=== PATIENT | male | born 1965 | race Hispanic/Latino ===

== ENCOUNTER 2018-12-07 22:40 | Inpatient (IN) | payer OTHER ==
[2018-12-07] MEDS ORDERED: TYLENOL ONE (22:49)
[2018-12-07] MEDS ORDERED: PROVENTIL IH ONE (23:08)
[2018-12-07] MEDS ORDERED: SOLU-Medrol IV ONE (23:08)
[2018-12-07] MEDS ORDERED: ATROVENT IH ONE (23:08)
--- NOTE | 2018-12-07 23:14 | Emergency Department Report ---
HPI - General Chief Complaint: Dyspnea/Respdistress Time Seen by Provider: 12/07/18 23:00 - HPI HPI: Room 22 The patient is a 53-year-old male presented with a chief complaint of shortness of breath. Patient states she's felt short of breath for the past 2 days. Patient missed a cough productive of sputum and states he is not aware of the color. Patient admits to a subjective fever and rhinorrhea. Patient states he has a sore throat and headache as well Location: Lungs Duration: [See above] Quality: Short of breath Severity: Moderate Modifying factors: [see above] Context: [see above] Mode of transportation: [not driving] ED Past Medical Hx - Past Medical History Previous Medical History?: Yes Hx Hypertension: Yes Hx COPD: Yes (no home O2) - Surgical History Hx Appendectomy: Yes Additional Surgical History: Tonsilectomy - Family History Family history: no significant - Social History Smoking Status: Former Smoker (none 6 years) Substance Use Type: None (denies illicit drug use) ED Review of Systems ROS: Stated complaint: SHORTNESS OF BREATH Other details as noted in HPI Constitutional: fever (subjective) Eyes: denies: eye pain ENT: throat pain Respiratory: cough, shortness of breath, wheezing Cardiovascular: denies: chest pain Endocrine: no symptoms reported Gastrointestinal: denies: abdominal pain Genitourinary: denies: dysuria Musculoskeletal: denies: back pain Neurological: headache Physical Exam - Physical Exam Vital Signs: Vital Signs 12/07/18 12/07/18 22:49 22:50 Temperature 101.9 F H Pulse Rate 118 H 118 H Respiratory 21 26 H Rate Blood Pressure 162/78 166/83 O2 Sat by Pulse 99 98 Oximetry Physical Exam: GENERAL: The patient is well-developed well-nourished male sitting on stretcher appearing to be in mild discomfort. [] HEENT: Normocephalic. Atraumatic. Extraocular motions are intact. Patient has moist mucous membranes. Oropharynx clear NECK: Supple. Trachea midline CHEST/LUNGS: Diffuse wheezing and rhonchi. HEART/CARDIOVASCULAR: Regular. There is no tachycardia. There is no gallop rub or murmur. ABDOMEN: Abdomen is soft, nontender. Patient has normal bowel sounds. There is no abdominal distention. SKIN: There is no rash. There is no diaphoresis. NEURO: The patient is awake, alert, and oriented. The patient is cooperative. The patient has normal speech MUSCULOSKELETAL: There is no evidence of acute injury. ED Course Vital Signs 12/07/18 12/07/18 22:49 22:50 Temperature 101.9 F H Pulse Rate 118 H 118 H Respiratory 21 26 H Rate Blood Pressure 162/78 166/83 O2 Sat by Pulse 99 98 Oximetry - Reevaluation(s) Reevaluation #1: 12/08/18 00:02 Patient states he is feeling better than he did on presentation. Patient's ABG reveals normal PaO2 with supplemental O2 with FiO2 of 50%. Patient still has faint wheezing. Will admit to the hospital for further management ED Medical Decision Making - Lab Data Result diagrams: 12/07/18 22:59 12/07/18 22:59 - EKG Data -: EKG Interpreted by Me EKG shows normal: sinus rhythm Rate: tachycardia (120 bpm) - EKG Data When compared to previous EKG there are: previous EKG unavailable Interpretation: other (no ischemic changes seen) - Radiology Data Radiology results: image reviewed (chest x-ray) interpreted by me: Chest x-ray-no focal infiltrates, no pneumothorax - Differential Diagnosis COPD exacerbation, pneumonia, bronchitis, influenza Critical care attestation.: If time is entered above; I have spent that time in minutes in the direct care of this critically ill patient, excluding procedure time. ED Disposition Clinical Impression: COPD exacerbation, Shortness of breath Disposition: OP ADMIT IP TO THIS HOSP Is pt being admited?: Yes Does the pt Need Aspirin: Yes Condition: Fair Instructions: Chronic Obstructive Pulmonary Disease (ED) Time of Disposition: 00:02 (hospitalist paged (Dr Briscoe))
[2018-12-07 23:30] LABS: Basophils % (Auto) 0.3 % (0.0-1.8); Eosinophils % (Auto) 0.1 % (0.0-4.3); Hematocrit 43.8 % (35.5-45.6); Hemoglobin 14.9 gm/dl (11.8-15.2); Lymphocytes # (Auto) 1.5 K/mm3 (1.2-5.4); Lymphocytes % (Auto) 16.5 % (13.4-35.0); Mean Corpuscular HGB Conc 34 % (32-34); Mean Corpuscular Volume 89 fl (84-94); Monocytes # (Auto) 1.3 K/mm3 (0.0-0.8); Platelet Count 125 K/mm3 (140-440); Red Blood Count 4.95 M/mm3 (3.65-5.03); Red Cell Distribution Width 13.4 % (13.2-15.2)
[2018-12-07 23:49] LABS: BUN/Creatinine Ratio 17; Blood Urea Nitrogen 12 mg/dL (9-20); Calcium 8.5 mg/dL (8.4-10.2); Hemolysis Index 15
--- NOTE | 2018-12-08 00:54 | XRay Report ---
FINAL REPORT EXAM: XR CHEST 1V AP HISTORY: sob TECHNIQUE: AP portable view of the chest. PRIORS: None. FINDINGS: The cardiomediastinal silhouette appears normal. There is a small patchy opacity in the left lung bas e, consistent with subsegmental atelectasis or small infiltrate. The bones and soft tissues are unrem arkable. IMPRESSION: Left basilar subsegmental atelectasis versus infiltrate
[2018-12-08] MEDS ORDERED: D50W (25GM) Syringe IV PRN (01:36)
[2018-12-08] MEDS ORDERED: TYLENOL PO ONE (02:11)
[2018-12-08] MEDS: DUONEB *Not for PRN Use IH SCH ×4 (02:50→20:49)
[2018-12-08] MEDS ORDERED: TYLENOL PO PRN (05:07)
[2018-12-08] MEDS: SOLU-Medrol IV SCH ×3 (05:41→21:12)
[2018-12-08] MEDS: HumuLIN R SUB-Q SCH ×4 (06:42→21:13)
--- NOTE | 2018-12-08 06:45 | History and Physical Report ---
CHIEF COMPLAINT: Shortness of breath. HISTORY OF PRESENT ILLNESS: The patient is a 53-year-old male with known history of COPD, who said he has been having shortness of breath going on for 2 days. There is also a history of cough productive of white to yellow sputum and also the patient said that there is some runny nose and fever going on, but denied any history of chest pain. The patient admitted to having headache and sore throat and denied history of nausea or vomiting and presented for evaluation. PAST MEDICAL HISTORY: Pertinent for COPD and hypertension. PAST SURGICAL HISTORY: Pertinent for appendectomy and tonsillectomy. FAMILY HISTORY: Noncontributory. SOCIAL HISTORY: The patient is a former cigarette smoker, but does not smoke currently, does not use illicit drugs, and does not drink alcohol. MEDICATIONS: The patient's home medications are not known at this time. ALLERGIES: There are no known drug allergies. REVIEW OF SYSTEMS: CONSTITUTIONAL: There is no fever, no chills, no diaphoresis. HEENT: There is no headache, but there is sore throat. CARDIOVASCULAR SYSTEM: There is no chest pain or orthopnea. RESPIRATORY SYSTEM: Shortness of breath is present. Cough is present. Rhinorrhea or runny nose is present. Congestion is present. GASTROINTESTINAL SYSTEM: There is no nausea, no vomiting. No abdominal pain, diarrhea or constipation. NEUROLOGICAL SYSTEM: There is no numbness, no dizziness, no altered mental status. MUSCULOSKELETAL SYSTEM: There is no joint pain or swelling. DERMATOLOGICAL SYSTEM: There is no skin rash or itching. GENITOURINARY SYSTEM: There is no dysuria, hematuria, or flank pain. Rest of system review is normal. PHYSICAL EXAMINATION: GENERAL: At the time of exam, the patient was found to be alert, oriented x 3 and in mild distress due to shortness of breath. VITAL SIGNS: At the initial time of presentation show temperature of 101.9 degrees Fahrenheit, pulse of 118, respirations 21, blood pressure 162/78, O2 sat of 99% on room air. HEENT: Shows pupils to be equal, round, and reactive to light and accommodating. Extraocular muscles are intact. NECK: Supple with no JVD or carotid bruit. CARDIOVASCULAR SYSTEM: Shows normal first and second heart sounds with no gallops or murmurs. RESPIRATORY SYSTEM: Shows good air entry on both sides of the lung with expiratory wheezing. GASTROINTESTINAL SYSTEM: Shows abdomen to be full, soft, nontender with no organomegaly or rigidity. NEUROLOGIC: Neuro exam shows no focal deficit. MUSCULOSKELETAL SYSTEM: Shows no joint swelling or tenderness. DERMATOLOGICAL SYSTEM: Shows no skin rash. GENITOURINARY SYSTEM: Showing no costovertebral angle tenderness. PERTINENT LABORATORY AND IMAGING STUDIES: The patient had chest x-ray done that shows left basilar subsegmental atelectasis versus infiltrate. The patient's lab results shows CBC with normal white count, normal hemoglobin and normal hematocrit and CBC differential showing elevated monocyte count of 14%. The patient's ABG shows low pH of 7.34 with normal pCO2, normal pO2 and this was done on FiO2 of 52 with normal O2 sat. The patient's chemistry shows slightly low sodium of 134, high glucose level of 245. It is not certain whether the patient is diabetic. DIAGNOSES: 1. Chronic obstructive pulmonary disease exacerbation. 2. Hyperglycemia PLAN OF CARE: 1. The patient will be admitted to medical/surgical [facility]. 2. The patient will be on IV Solu-Medrol 60 mg q.8 hours. 3. The patient will be on IV Levaquin 750 mg daily. 4. The patient will be on DuoNeb q.6 hours. 5. The patient will be on Tylenol 650 mg by mouth every 6 hours as needed for fever and headache. 6. The patient will be on IV Solu-Medrol 60 mg q.8 hours. 7. The patient will be on IV Zofran 4 mg every 8 hours as needed for nausea and vomiting. 8. The patient will be on Accu-Chek a.c. and bedtime, followed by low-dose sliding scale using regular insulin coverage. 9. The patient's diet will be 2 g sodium consistent carbohydrate diet. 10. The patient will be on oxygen by nasal cannula which will be adjusted by respiratory therapist for management of respiratory distress. JOB# [id number] OCN/NTS
[2018-12-08] MEDS: LEVAQUIN 750MG/150ML 750 MG/150 ML BAG IV SCH (10:00)
[2018-12-08] MEDS ORDERED: AFLURIA QUAD 2018-2019 SYRINGE IM ONE (12:00)
--- NOTE | 2018-12-08 15:19 | Progress Note ---
Assessment and Plan Acute COPD exacerbation - Will provide scheduled nebulizer breathing treatment and as needed - Place on empiric steroid and antibiotic - will get sputum culture, chest x-ray was unremarkable - Provide supplemental oxygen to keep oxygen saturation above 92% - Consider to consult pulmonary if no improvement in next 24 hours - We'll place on sliding scale of insulin as patient will be on empiric steroid Acute hypercapnic respiratory failure - Due to COPD exacerbation and likely underlying sleep apnea, now improved - Management as above, sleep study outpatient Hypertension, continue hydralazine by mouth, and as needed IV medications to keep systolic less than 160 Morbid obesity, dietary recommendation when stable Hyperglycemia, we'll check A1c, could be also from steroid - We will continue home medications, monitor BP - Provide DVT prophylaxis with Lovenox. Brief history: 53-year-old morbidly obese white male with known history of COPD presented to the hospital with complaint of worsening shortness of breath for last 2 days. Physical exam: GENERAL: well-developed morbidly obese white male lying on bed appeared to be in no discomfort. HEENT: Normocephalic. Atraumatic. No conjunctival congestion or icterus. Patient has moist mucous membranes. NECK: Supple. Trachea midline. CHEST/LUNGS: Diminished breath sounds auscultated bilaterally, breathing nonlabored. No wheezes crackles or rhonchi. HEART/CARDIOVASCULAR: Regular in rate and rhythm. S1 and S2 positive. ABDOMEN: Abdomen is soft, nontender. Patient has normal bowel sounds. SKIN: There is no rash. Warm and dry. NEURO: No focal motor deficit. Follows command. MUSCULOSKELETAL: No joint effusion or tenderness. EXTRIMITY: No edema, no cyanosis or clubbing. PSYCH: Cooperative. Subjective Date of service: 12/08/18 Interval history: Patient seen and examined. Medical records and medication list reviewed. No acute event overnight noted by the RN. Patient denies any chest pain, continued to complain of difficulty breathing wi th minimal exertion. Patient is tolerating diet. Discussed plan of care at bedside with patient. Objective - Constitutional Vitals: Vital Signs - 12hr 12/08/18 12/08/18 12/08/18 03:30 03:45 04:01 Temperature Pulse Rate 115 H Pulse Rate [ Anterior Bilateral Throughout] Pulse Rate [ Apical] Pulse Rate [ From Monitor] Respiratory 18 Rate Respiratory Rate [Anterior Bilateral Throughout] Blood Pressure 150/79 154/135 156/62 O2 Sat by Pulse 97 96 97 Oximetry 12/08/18 12/08/18 12/08/18 04:15 04:31 04:45 Temperature Pulse Rate 130 H 117 H Pulse Rate [ Anterior Bilateral Throughout] Pulse Rate [ Apical] Pulse Rate [ From Monitor] Respiratory 18 Rate Respiratory Rate [Anterior Bilateral Throughout] Blood Pressure 156/62 156/62 156/62 O2 Sat by Pulse 98 95 94 Oximetry 12/08/18 12/08/18 12/08/18 04:51 05:13 06:27 Temperature 98.3 F Pulse Rate 112 H Pulse Rate [ Anterior Bilateral Throughout] Pulse Rate [ Apical] Pulse Rate [ From Monitor] Respiratory 18 Rate Respiratory Rate [Anterior Bilateral Throughout] Blood Pressure 156/62 149/82 O2 Sat by Pulse 95 96 98 Oximetry 12/08/18 12/08/18 12/08/18 07:33 09:22 10:00 Temperature Pulse Rate 112 H Pulse Rate [ 115 H Anterior Bilateral Throughout] Pulse Rate [ 108 H Apical] Pulse Rate [ 104 H From Monitor] Respiratory 20 Rate Respiratory 22 Rate [Anterior Bilateral Throughout] Blood Pressure 158/68 O2 Sat by Pulse 94 94 Oximetry - Labs CBC & Chem 7: 12/07/18 22:59 12/07/18 22:59 Labs: Abnormal lab results 12/07/18 12/07/18 12/07/18 Range/Units 22:59 22:59 23:33 Plt Count 125 L (140-440) K/mm3 Meagher % (Auto) 14.0 H (0.0-7.3) % Meagher # 1.3 H (0.0-0.8) K/mm3 POC ABG pH 7.344 L (7.35-7.45) Sodium 134 L (137-145) mmol/L Creatinine 0.7 L (0.8-1.5) mg/dL Glucose 245 H (75-100) mg/dL POC Glucose (70-105) 12/08/18 12/08/18 Range/Units 05:43 11:28 Plt Count (140-440) K/mm3 Meagher % (Auto) (0.0-7.3) % Meagher # (0.0-0.8) K/mm3 POC ABG pH (7.35-7.45) Sodium (137-145) mmol/L Creatinine (0.8-1.5) mg/dL Glucose (75-100) mg/dL POC Glucose 438 H 418 H (70-105)
[2018-12-08] MEDS: GLUCOPHAGE PO SCH (16:48)
[2018-12-08] MEDS: APRESOLINE PO SCH (23:52)
[2018-12-09] MEDS: DUONEB *Not for PRN Use IH SCH ×4 (02:38→20:51)
[2018-12-09] MEDS: SOLU-Medrol IV SCH (05:29)
[2018-12-09] MEDS: HumuLIN R SUB-Q SCH ×4 (09:30→22:41)
[2018-12-09] MEDS: APRESOLINE PO SCH ×3 (09:31→21:22)
[2018-12-09] MEDS: GLUCOPHAGE PO SCH ×2 (09:31→18:30)
[2018-12-09] MEDS: LEVAQUIN 750MG/150ML 750 MG/150 ML BAG IV SCH (12:09)
[2018-12-09] MEDS: ZOFRAN IV PRN (12:09)
--- NOTE | 2018-12-09 13:07 | Progress Note ---
Assessment and Plan Acute COPD exacerbation - Will provide scheduled nebulizer breathing treatment and as needed -We will taper steroid and continue IV antibiotic - chest x-ray was unremarkable - Provide supplemental oxygen to keep oxygen saturation above 92% - on sliding scale of insulin as patient on empiric steroid Acute hypercapnic respiratory failure - Due to COPD exacerbation and likely underlying sleep apnea, now improved - Management as above, sleep study outpatient Hypertension, uncontrolled - continue hydralazine, add Norvascand lisinopril by mouth, and as needed IV medications to keep systolic less than 160 Morbid obesity, dietary recommendation when stable Hyperglycemia, A1c 6.2, could be also from steroid Abdominal pain with N/V - will obtain abdominal XRY - We will continue home medications, monitor BP - Provide DVT prophylaxis with Lovenox. Brief history: 53-year-old morbidly obese white male with known history of COPD presented to the hospital with complaint of worsening shortness of breath for last 2 days. Physical exam: GENERAL: well-developed morbidly obese white male lying on bed appeared to be in no discomfort. HEENT: Normocephalic. Atraumatic. No conjunctival congestion or icterus. Patient has moist mucous membranes. NECK: Supple. Trachea midline. CHEST/LUNGS: Diminished breath sounds auscultated bilaterally, breathing nonlabored. No wheezes crackles or rhonchi. HEART/CARDIOVASCULAR: Regular in rate and rhythm. S1 and S2 positive. ABDOMEN: Abdomen is soft, obese, + tender on RLQ. Patient has normal bowel sounds. SKIN: There is no rash. Warm and dry. NEURO: No focal motor deficit. Follows command. MUSCULOSKELETAL: No joint effusion or tenderness. EXTRIMITY: No edema, no cyanosis or clubbing. PSYCH: Cooperative. Subjective Date of service: 12/09/18 Interval history: Patient seen and examined. Medical records and medication list reviewed. No acute event overnight noted by the RN. Patient denies any chest pain, continued to complain of difficulty breathing with exertion. But better now Patient had vomiting this am, c/o RLQ abdominal pain Discussed plan of care at bedside with patient. Objective - Constitutional Vitals: Vital Signs - 12hr 12/09/18 12/09/18 12/09/18 04:17 08:33 08:38 Temperature 97.7 F 97.4 F L Pulse Rate 116 H 113 H Pulse Rate [ 106 H Anterior Bilateral Throughout] Respiratory 20 20 Rate Respiratory 20 Rate [Anterior Bilateral Throughout] Blood Pressure 146/71 158/70 O2 Sat by Pulse 94 96 Oximetry 12/09/18 12/09/18 12/09/18 08:43 09:51 12:14 Temperature 97.6 F Pulse Rate 110 H Pulse Rate [ 108 H Anterior Bilateral Throughout] Respiratory 22 Rate Respiratory 20 Rate [Anterior Bilateral Throughout] Blood Pressure 171/84 O2 Sat by Pulse 96 92 Oximetry - Labs CBC & Chem 7: 12/07/18 22:59 12/07/18 22:59 Labs: Abnormal lab results 12/08/18 12/08/18 12/08/18 Range/Units 14:54 16:06 20:42 POC Glucose 420 H 359 H (70-105) Hemoglobin A1c 6.2 H (4-6) % 12/09/18 12/09/18 Range/Units 05:56 11:44 POC Glucose 309 H 372 H (70-105) Hemoglobin A1c (4-6) %
[2018-12-09] MEDS: NORVASC PO SCH (14:00)
[2018-12-09] MEDS: ZESTRIL PO SCH (14:00)
[2018-12-09] MEDS: MORPHINE IV PRN ×2 (14:58→19:25)
--- NOTE | 2018-12-09 16:41 | XRay Report ---
FINAL REPORT EXAM: XR ABDOMEN 1V AP HISTORY: obstruction TECHNIQUE: 2 views of the abdomen. PRIORS: None currently available. FINDINGS: [id number]-ptekkcfv gas is distended small bowel loops with a maximum diameter 3.4 cm. Large bowel loops are decompressed with [id number]-gt-[id number] stool. No pneumatosis. No pneumoperitoneum. No significant ai r-fluid levels. There are no suspicious calcifications overlying the renal shadows. Degenerative changes are present in the spine and hips. IMPRESSION: Nonspecific bowel gas pattern. Findings may represent enteritis, ileus, or low grade incomplete obstr uction. Follow-up imaging is recommended if clinically indicated.
[2018-12-10] MEDS: DUONEB *Not for PRN Use IH SCH ×3 (02:38→14:28)
[2018-12-10] MEDS: ZOFRAN IV PRN (05:20)
[2018-12-10] MEDS: MORPHINE IV PRN (05:20)
[2018-12-10] MEDS: APRESOLINE PO SCH ×2 (05:53→17:50)
[2018-12-10] MEDS ORDERED: SOLU-Medrol IV SCH (10:00)
[2018-12-10] MEDS: ZESTRIL PO SCH (10:18)
[2018-12-10] MEDS: GLUCOPHAGE PO SCH (10:18)
[2018-12-10] MEDS: NORVASC PO SCH (10:18)
[2018-12-10] MEDS: LEVAQUIN 750MG/150ML 750 MG/150 ML BAG IV SCH (10:19)
[2018-12-10] MEDS: HumuLIN R SUB-Q SCH ×3 (10:19→17:49)
--- NOTE | 2018-12-10 14:35 | Cat Scan Report ---
CT ABDOMEN PELVIS WITHOUT CONTRAST: HISTORY: Pain. COMPARISON: none. TECHNIQUE: Helical CT in 1.25mm intervals without IV contrast. Sagittal and coronal reconstructions. FINDINGS: Lung bases: There are patchy groundglass infiltrates at both lung bases concerning for an infectious process. Normal heart size. No pleural fluid. Liver: Mild fatty changes identified throughout the liver. Biliary system: A few tiny calcified gallstones are identified. No biliary dilatation or inflammation. Pancreas: Normal. Spleen: Normal. Kidneys/ureters/bladder: Normal. Adrenal glands: Normal. Aorta: Mild calcifications. No aneurysm. Intestines: No evidence for bowel obstruction or focal inflammation. Appendix: Not identified, correlate with surgical history. Pelvic viscera: Normal. Ascites: None. Adenopathy: None. Musculoskeletal: Intact. Mild lumbar spondylosis. IMPRESSION: Subtle patchy infiltrates are suspected at the lung bases. Correlate for pulmonary infection. Mild hepatic steatosis. Cholelithiasis. No acute inflammatory process is identified in the abdomen or pelvis.
--- NOTE | 2018-12-10 15:07 | Discharge Summary ---
Providers - Providers Date of Admission: 12/08/18 00:04 Date of discharge: 12/10/18 Attending physician: NASRIN ARTEAGA [facility] Reason for admission: copd Condition: Fair Pertinent studies: CXR: Left basilar subsegmental atelectasis versus infiltrate Abdomen/pelvis xry: Nonspecific bowel gas pattern. Findings may represent enteritis, ileus, or low grade incomplete obstruction. Follow-up imaging is recommended if clinically indicated. CT abdomen/pelvis; Subtle patchy infiltrates are suspected at the lung bases. Correlate for pulmonary infection. Mild hepatic steatosis. Cholelithiasis. No acute inflammatory process is identified in the abdomen or pelvis. Hospital course: Brief history: 53-year-old morbidly obese white male with known history of COPD presented to the hospital with complaint of worsening shortness of breath for last 2 days. He was admitted with COPD protocol, clinically improved then c/o abdominal pain, obtained CT abdomen showed no acute process, provided supportive care, patient medically stabilized then discharged home in stable condition. Discuss diagnosis and management: Acute COPD exacerbation - Managed with scheduled nebulizer breathing treatment and as needed, taper s teroid dose and IV antibiotic - chest x-ray showed Left basilar subsegmental atelectasis versus infiltrate - Provided supplemental oxygen to keep oxygen saturation above 92% - symptom improved and was stable on discharge Acute hypercapnic respiratory failure - Due to COPD exacerbation and likely underlying sleep apnea, now improved - Management as above, sleep study outpatient Hypertension, uncontrolled - Placed on hydralazine, Norvasc and lisinopril by mouth, and as needed IV medications to keep systolic less than 160 Morbid obesity, dietary recommendation provided Hyperglycemia, A1c 6.2, could be also from steroid Abdominal pain with N/V, resolved - abdominal xry showed enteritis, ileus, or low grade incomplete obstruction - Obtain CT abdomen w/o any acute intra-abdominal findings, symptom resolved, could be from mild colitis - Provided DVT prophylaxis with Lovenox. Physical exam: GENERAL: well-developed morbidly obese white male lying on bed appeared to be in no discomfort. HEENT: Normocephalic. Atraumatic. No conjunctival congestion or icterus. Patient has moist mucous membranes. NECK: Supple. Trachea midline. CHEST/LUNGS: Diminished breath sounds auscultated bilaterally, breathing nonlabored. No wheezes crackles or rhonchi. HEART/CARDIOVASCULAR: Regular in rate and rhythm. S1 and S2 positive. ABDOMEN: Abdomen is soft, obese, no tenderness. Patient has normal bowel sounds. SKIN: There is no rash. Warm and dry. NEURO: No focal motor deficit. Follows command. MUSCULOSKELETAL: No joint effusion or tenderness. EXTRIMITY: No edema, no cyanosis or clubbing. PSYCH: Cooperative. Disposition: DC-01 TO HOME OR SELFCARE Time spent for discharge: 34 minutes Core Measure Documentation - Palliative Care Palliative Care/ Comfort Measures: Not Applicable - Core Measures Any of the following diagnoses?: none Exam - Constitutional Vitals: Temp Pulse Resp BP Pulse Ox 97.9 F 111 H 20 116/68 95 12/10/18 12:46 12/10/18 12:46 12/10/18 12:46 12/10/18 12:46 12/10/18 12:46 Plan Activity: advance as tolerated Weight Bearing Status: Weight Bear as Tolerated Diet: low fat, low salt Follow up with: ROLDAN ESPARZAST. [facility] [Primary Care Provider] - 3-5 Days Prescriptions: ALBUTEROL Inhaler (OR & NICU) [Proair] 2 puff IH QID PRN 30 Days inhalation PRN Reason: Shortness Of Breath amLODIPine [Norvasc] 10 mg PO QDAY #30 tablet Budesoni/Formotero 160-4.5(Nf) [Symbicort 160-4.5 (Nf)] 1 puff IH BID 30 Days inha hydrALAZINE [Apresoline TAB] 50 mg PO Q8HR #90 tablet levoFLOXacin [Levaquin TAB] 500 mg PO QDAY #5 tablet Lisinopril [Zestril TAB] 20 mg PO QDAY #30 tablet predniSONE [Prednisone] 50 mg PO DAILY #5 tablet
[2018-12-10 17:47] VITALS: BP 119/71
== END 2018-12-10 18:24 | disposition home or self-care (01) | DRG 189 ==
LOC: ED 22:40 → 3A 12-08 00:04 → 4A 12-08 04:43
PROVIDERS: ADMIT Internal Medicine; ATTEND Internal Medicine
PROC: 4A033R1 Measurement of Arterial Saturation, Peripheral, Percutaneous Approach (ICD-10-PCS; principal; 2018-12-07)
DX: J96.02 Acute respiratory failure with hypercapnia (principal); J44.1 Chronic obstructive pulmonary disease with (acute) exacerbation; Z68.41 Body mass index [BMI] 40.0-44.9, adult; G47.30 Sleep apnea, unspecified; I10 Essential (primary) hypertension; E66.01 Morbid (severe) obesity due to excess calories; R73.9 Hyperglycemia, unspecified; K52.9 Noninfective gastroenteritis and colitis, unspecified; T38.0X5A Adverse effect of glucocorticoids and synthetic analogues, initial encounter; Z71.3 Dietary counseling and surveillance; Y92.89 Other specified places as the place of occurrence of the external cause; Z90.49 Acquired absence of other specified parts of digestive tract; Z87.891 Personal history of nicotine dependence
CPT/HCPCS: 36415; 71045; 74018; 74176; 80048; 82803; 82962; 83036; 85025; 93005; 93010; 94640; 94760; G0378; J1815; J1956; J2270; J2405; J2920; J2930

== ENCOUNTER 2022-05-28 15:20 | Observation (INO) | payer BC ==
[2022-05-28] MEDS ORDERED: ASPIRIN 325 MG TAB PO ONE (15:35)
[2022-05-28] MEDS ORDERED: dilTIAZem 25 MG/5 ML INJ IV ONE ×2 (16:01→16:44)
--- NOTE | 2022-05-28 16:03 | Emergency Department Report ---
ED General Adult HPI - General Chief complaint: Dyspnea/Respdistress Stated complaint: Chest tightness, and heart racing Time Seen by Provider: 05/28/22 16:02 Source: patient, family, RN notes reviewed, old records reviewed Mode of arrival: Wheelchair Limitations: Physical Limitation - History of Present Illness Initial comments: The patient was evaluated in the emergency department for symptoms described in the history of present illness. He/she was evaluated in the context of the global COVID-19 pandemic, which necessitated consideration that the patient might be at risk for infection with the virus that causes COVID-19. Institutional protocols and algorithms that pertain to the evaluation of patients at risk for COVID-19 are in a state of rapid change based on information released by regulatory bodies including the CDC and federal and sta organizations. These policies and algorithms were followed during the patient's care in the emergency department. Please note that these policies, procedures and recommendations changed on a rapid basis. Past medical history: Morbid obesity, body mass index of 45, A. fib, former tobacco user, former alcohol abuse, methamphetamine abuse, renal insufficiency. The patient is a 56-year-old gentleman who presents to the ER today with a complaint of chest tightness, and rapid heartbeat. The patient endorses intermittent compliance with medications. Patient recently admitted to this hospital for A. fib with RVR. He was found to have A. fib with RVR, renal insufficiency, and vasomotor nephropathy, and diabetes it was also suspected that the patient has obstructive sleep apnea, but he has not had a formal sleep study. Patient endorses intermittent compliance with his "heart medicine", but believes that he has been compliant with his Eliquis. -: Gradual, days(s) Location: chest Severity scale (0 -10): 5 Quality: other (Pressure and ache) Consistency: constant Improves with: none Worsens with: none - Related Data Previous Rx's Medication Instructions Recorded Last Taken Type Albuterol Mdi (or & Nicu Only) 2 puff IH QID PRN 30 Days 12/10/18 Unknown Rx [ProAir HFA Inhaler] inhalation Budesoni/Formotero 160-4.5(Nf) 1 puff IH BID 30 Days inha 12/10/18 Unknown Rx [Symbicort 160-4.5 (Nf)] amLODIPine 10 mg PO QDAY #30 tablet 12/10/18 Unknown Rx hydrALAZINE [Apresoline TAB] 50 mg PO Q8HR #90 tablet 12/10/18 Unknown Rx predniSONE [Prednisone] 50 mg PO DAILY #5 tablet 12/10/18 Unknown Rx Amiodarone [Cordarone 200 MG TAB] 200 mg PO BID #60 tablet 04/22/22 Unknown Rx Apixaban [Eliquis] 5 mg PO BID #30 tab 04/22/22 Unknown Rx Allergies Allergy/AdvReac Type Severity Reaction Status Date / Time No Known Allergies Allergy Verified 04/19/22 18:51 ED Review of Systems ROS: Stated complaint: CHEST PAIN/SOB/HEART AND KIDNEY FAILURE Other details as noted in HPI Constitutional: denies: fever Eyes: denies: eye discharge ENT: denies: epistaxis Respiratory: shortness of breath Cardiovascular: palpitations, other (Chest tightness) Gastrointestinal: denies: abdominal pain, nausea, vomiting, melena Genitourinary: denies: dysuria Musculoskeletal: myalgia Neurological: weakness Hematological/Lymphatic: denies: easy bleeding ED Past Medical Hx - Past Medical History Previous Medical History?: Yes Hx Hypertension: Yes Hx Congestive Heart Failure: Yes Hx Diabetes: Yes Hx COPD: Yes Additional medical history: Atrial fibrillation - Surgical History Past Surgical History?: Yes Hx Appendectomy: Yes Additional Surgical History: Tonsilectomy - Social History Smoking Status: Never Smoker - Medications Home Medications: Home Medications Medication Instructions Recorded Confirmed Last Taken Type Albuterol Mdi (or & Nicu Only) 2 puff IH QID PRN 30 Days 12/10/18 04/20/22 Unknown Rx [ProAir HFA Inhaler] inhalation Budesoni/Formotero 160-4.5(Nf) 1 puff IH BID 30 Days inha 12/10/18 04/20/22 Unknown Rx [Symbicort 160-4.5 (Nf)] amLODIPine 10 mg PO QDAY #30 tablet 12/10/18 04/20/22 Unknown Rx hydrALAZINE [Apresoline TAB] 50 mg PO Q8HR #90 tablet 12/10/18 04/20/22 Unknown Rx predniSONE [Prednisone] 50 mg PO DAILY #5 tablet 12/10/18 04/20/22 Unknown Rx Amiodarone [Cordarone 200 MG TAB] 200 mg PO BID #60 tablet 04/22/22 Unknown Rx Apixaban [Eliquis] 5 mg PO BID #30 tab 04/22/22 Unknown Rx ED Physical Exam - General Limitations: Physical Limitation General appearance: alert, in no apparent distress, obese - Head Head exam: Present: atraumatic, normocephalic - Eye Eye exam: Present: normal appearance, EOMI. Absent: nystagmus - ENT ENT exam: Present: normal exam, normal orophraynx, mucous membranes moist, normal external ear exam (Poor dentition) - Neck Neck exam: Present: normal inspection, full ROM. Absent: tenderness, meningismus - Respiratory Respiratory exam: Present: decreased breath sounds. Absent: respiratory distress, wheezes, rales, rhonchi, stridor - Cardiovascular Cardiovascular Exam: Present: tachycardia, irregular rhythm, normal heart sounds. Absent: systolic murmur, diastolic murmur, rubs, gallop - GI/Abdominal GI/Abdominal exam: Present: soft. Absent: distended, tenderness, guarding, rebound, rigid, pulsatile mass - Rectal Rectal exam: Present: deferred - Extremities Exam Extremities exam: Present: normal inspection, full ROM, pedal edema, other (2+ pulses noted in the bilateral upper and lower extremities. There is no palpable cord. negative Homans sign. Muscular compartments are soft. The pelvis is stable.). Absent: calf tenderness - Back Exam Back exam: Present: normal inspection. Absent: tenderness, CVA tenderness (R), CVA tenderness (L), paraspinal tenderness, vertebral tenderness - Neurological Exam Neurological exam: Present: alert, oriented X3, other (No facial droop. Tongue midline. Extraocular movements intact bilaterally. Facial sensation intact to light touch in V1, V2, V3 distribution bilaterally. 5 and a 5 strength in 4 extremities. Sensation intact to light touch in 4 extremities.). Absent: motor sensory deficit - Psychiatric Psychiatric exam: Present: normal affect, normal mood - Skin Skin exam: Present: warm, dry, intact, normal color. Absent: rash ED Course Vital Signs 05/28/22 05/28/22 05/28/22 15:31 16:21 16:31 Temperature 98 F Pulse Rate 78 135 H 135 H Respiratory 24 20 21 Rate Blood Pressure 100/70 Blood Pressure 117/83 [Right] O2 Sat by Pulse 97 98 99 Oximetry O2 Sat by Pulse Oximetry [ Digit-Finger] 0805/28/22 05/28/22 16:32 16:37 16:45 Temperature Pulse Rate 135 H 113 H Respiratory 30 H 25 H Rate Blood Pressure 100/70 100/70 Blood Pressure [Right] O2 Sat by Pulse 99 98 Oximetry O2 Sat by Pulse Oximetry [ Digit-Finger] 05/28/22 05/28/22 05/28/22 17:01 17:04 17:15 Temperature Pulse Rate 117 H 111 H Respiratory 24 19 Rate Blood Pressure 108/70 124/79 Blood Pressure [Right] O2 Sat by Pulse 99 100 Oximetry O2 Sat by Pulse 99 Oximetry [ Digit-Finger] 05/28/22 17:27 Temperature Pulse Rate 110 H Respiratory Rate Blood Pressure 116/89 Blood Pressure [Right] O2 Sat by Pulse Oximetry O2 Sat by Pulse Oximetry [ Digit-Finger] - Reevaluation(s) Reevaluation #1: 05/28/22 17:03 Differential diagnosis, including but not limited to: Noncompliance, electrolyte derangement, thyroid derangement, obstructive sleep apnea, A. fib with RVR Assessment and plan: 56-year-old gentleman presenting with A. fib and RVR. He is afebrile, tachycardic. He is in no acute distress. Suspect undiagnosed obstructive sleep apnea. He is pleasant, calm and cooperative. Place patient on electronics design engineer, head of bed elevation, aspiration precautions, trial dose of diltiazem. Patient received 1 5 mg of diltiazem x1, heart rate slowed down, but still tachycardic. Additional diltiazem will be ordered. Recent ejection fraction reviewed and appreciated. Laying comfortably on side at this time, and in no acute distress 05/28/22 17:49 Patient received diltiazem, 15 mg x 1, and a subsequent dose of 20 mg. Heart rate now high 80s to low 90s. Patient resting comfortably. He feels improved. Admit to medical service under the care of Dr. Jose David Garcia, for nonspecific chest pain, and A. fib with RVR requiring multiple doses of intravenous agents. Patient agreeable to admission. - Pulse Oximetry Interpretation Digit-Finger Initial Pulse Oximetry Readin O2 Sat by Pulse Oximetry: 99 Actions Taken: none ED Medical Decision Making - Lab Data Result diagrams: 05/28/22 16:27 05/28/22 16:27 Vital Signs 05/28/22 05/28/22 05/28/22 15:31 16:32 16:37 Temperature 98 F Pulse Rate 78 135 H Respiratory 24 30 H Rate Blood Pressure 100/70 Blood Pressure 117/83 [Right] O2 Sat by Pulse 97 99 Oximetry - EKG Data -: EKG Interpreted by Me Rate: tachycardia - EKG Data 05/28/22 17:01 The EKG is interpreted at 15: 40 A. fib, RVR, rate 140 bpm. Borderline leftward axis deviation, poor R wave progression, QTC 505 ms. Abnormal EKG. Not a STEMI. - Radiology Data Radiology results: pending, report reviewed, image reviewed CHEST 2 VIEWS INDICATION / CLINICAL INFORMATION: sob with chest pain. COMPARISON: 04/19/2022 FINDINGS: SUPPORT DEVICES: None. HEART / MEDIASTINUM: No significant abnormality. LUNGS / PLEURA: No significant pulmonary or pleural abnormality. No pneumothorax. ADDITIONAL FINDINGS: No significant additional findings. IMPRESSION: 1. No acute findings. Signer Name: David Kate DO Signed: 05/28/2022 3:04 PM Workstation Name: [id number] Critical Care Time: Yes Critical care time in (mins) excluding proc time.: 45 Critical care attestation.: If time is entered above; I have spent that time in minutes in the direct care of this critically ill patient, excluding procedure time. ED Disposition Clinical Impression: Atrial fibrillation with rapid ventricular response, Body mass index exceeds 40, Non-compliance, Nonspecific chest pain Disposition: ADMITTED INPATIENT Is pt being admited?: Yes Does the pt Need Aspirin: No Condition: Good Instructions: Nonspecific Chest Pain, Adult Heart Score - HEART Score History: Slightly suspicious EKG: Non-specific Age: 45-65 Risk factors: > 3 risk factors or hx of atherosclerotic disease Troponin: < normal limit HEART Score: 4 - EKG Read Time Time EKG Completed: 15:40 EKG Read Time: 15:40 - Critical Actions Critical Actions: 4-6 pts:12-16.6% risk of adverse cardiac event. Should be admitted
--- NOTE | 2022-05-28 16:08 | XRay Report ---
CHEST 2 VIEWS INDICATION / CLINICAL INFORMATION: sob with chest pain. COMPARISON: 04/19/2022 FINDINGS: SUPPORT DEVICES: None. HEART / MEDIASTINUM: No significant abnormality. LUNGS / PLEURA: No significant pulmonary or pleural abnormality. No pneumothorax. ADDITIONAL FINDINGS: No significant additional findings. IMPRESSION: 1. No acute findings. Signer Name: David Kate DO Signed: 05/28/2022 4:04 PM Workstation Name: [id number]
[2022-05-28 16:54] LABS: Basophils # (Auto) 0.1 K/mm3 (0.0-0.1); Basophils % (Auto) 0.6 % (0.0-1.8); Eosinophils # (Auto) 0.2 K/mm3 (0.0-0.4); Eosinophils % (Auto) 2.6 % (0.0-4.3); Hematocrit 39.3 % (35.5-45.6); Hemoglobin 13.4 gm/dl (11.8-15.2); Lymphocytes # (Auto) 1.8 K/mm3 (1.2-5.4); Lymphocytes % (Auto) 21.2 % (13.4-35.0); Mean Corpuscular HGB Conc 34 % (32-34); Mean Corpuscular Volume 89 fl (84-94); Monocytes % (Auto) 11.6 % (0.0-7.3); Platelet Count 149 K/mm3 (140-440); Red Blood Count 4.42 M/mm3 (3.65-5.03); Red Cell Distribution Width 14.8 % (13.2-15.2)
[2022-05-28 17:20] LABS: Alanine Aminotransferase 61 units/L (7-56); Albumin 3.7 g/dL (3.9-5); BUN/Creatinine Ratio 23; Blood Urea Nitrogen 23 mg/dL (9-20); Calcium 8.8 mg/dL (8.4-10.2); Hemolysis Index 58
[2022-05-28] MEDS ORDERED: NON-FORMULARY EACH (Apixaban 5 MG Tablet) PO STA (17:29)
[2022-05-28] MEDS ORDERED: ASPIRIN 81 MG TAB CHEW PO ONE (17:49)
[2022-05-28] MEDS ORDERED: ACETAMINOPHEN 325 MG TAB PO PRN (17:53)
[2022-05-28] MEDS ORDERED: ONDANSETRON 4 MG/2 ML INJ IV PRN (17:53)
[2022-05-28] MEDS ORDERED: NALOXONE 0.4 MG/1 ML INJ IV PRN (17:53)
[2022-05-28] MEDS ORDERED: amLODIPine 10 MG TAB PO SCH (18:00)
[2022-05-28] MEDS ORDERED: APIXABAN 5 MG TAB PO STA (18:16)
[2022-05-29] MEDS ORDERED: LORazepam 0.5 MG TAB PO PRN (00:21)
[2022-05-29] MEDS ORDERED: ALBUTEROL 8.5 GM MDI INHALATION IH PRN (01:08)
[2022-05-29] MEDS ORDERED: METOCLOPRAMIDE 10 MG/2 ML INJ IV PRN (01:13)
[2022-05-29] MEDS ORDERED: ONDANSETRON 4 MG/2 ML INJ IV PRN (01:13)
[2022-05-29] MEDS ORDERED: MORPHINE 2 MG/1 ML INJ IV PRN (01:13)
[2022-05-29] MEDS ORDERED: ACETAMINOPHEN 325 MG TAB PO PRN (01:13)
[2022-05-29] MEDS ORDERED: NON-FORMULARY EACH (Budesoni/Formotero 160-4.5(Nf) 10.2 GM Inha) IH SCH (01:15)
[2022-05-29] MEDS ORDERED: SODIUM CHLORIDE 0.9% 1000 ML 1,000 ML IV SCH (01:15)
[2022-05-29] MEDS: INSULIN LISPRO 100 UNIT/ML SUB-Q SCH ×5 (01:24→22:35)
[2022-05-29] MEDS ORDERED: ALBUTEROL 2.5 MG/3 ML NEBU IH PRN (01:29)
[2022-05-29] MEDS: hydrALAZINE 25 MG TAB PO SCH ×3 (01:45→18:12)
[2022-05-29] MEDS: AMIODARONE 200 MG TAB PO SCH ×3 (02:56→22:41)
--- NOTE | 2022-05-29 08:36 | History and Physical Report ---
History of Present Illness Date of examination: 05/28/22 Date of admission: 05/28/22 17:53 Chief complaint: Chest pain and palpitations since a.m. History of present illness: 56-year-old male with a history of COPD, hypertension, atrial fibrillation on Eliquis presents to the ER with chest tightness and palpitations. In the emergency room his heart rate was ranging from 120 to 150. Patient was recently discharged after being treated for BINU and atrial fibrillation with RVR. Patient is on amiodarone and Eliquis. No shortness of breath. Chest pain is intermittent. - Past Medical History --Hypertension: Yes --Congestive Heart Failure: Yes --Diabetes: Yes --COPD: Yes --Additional medical history: Atrial fibrillation - Surgical History --Appendectomy: Yes -- Tonsilectomy - Social History --Never Smoker --Family history --Htn - Medications Home Medications: Home Medications Medication Instructions Recorded Confirmed Last Taken Type Albuterol Mdi (or & Nicu Only) 2 puff IH QID PRN 30 Days 12/10/18 04/20/22 Unknown Rx [ProAir HFA Inhaler] inhalation Budesoni/Formotero 160-4.5(Nf) 1 puff IH BID 30 Days inha 12/10/18 04/20/22 Unknown Rx [Symbicort 160-4.5 (Nf)] amLODIPine 10 mg PO QDAY #30 tablet 12/10/18 04/20/22 Unknown Rx hydrALAZINE [Apresoline TAB] 50 mg PO Q8HR #90 tablet 12/10/18 04/20/22 Unknown Rx predniSONE [Prednisone] 50 mg PO DAILY #5 tablet 12/10/18 04/20/22 Unknown Rx Amiodarone [Cordarone 200 MG TAB] 200 mg PO BID #60 tablet 04/22/22 Unknown Rx Apixaban [Eliquis] 5 mg PO BID #30 tab 04/22/22 Unknown Rx Review of Systems ROS: Stated complaint: CHEST PAIN/SOB/HEART AND KIDNEY FAILURE Other details as noted in HPI Constitutional: denies: fever Eyes: denies: eye discharge ENT: denies: epistaxis Respiratory: shortness of breath Cardiovascular: palpitations, other (Chest tightness) Gastrointestinal: denies: abdominal pain, nausea, vomiting, melena Genitourinary: denies: dysuria Musculoskeletal: myalgia Neurological: weakness Hematological/Lymphatic: denies: easy bleeding Medications and Allergies Allergies Allergy/AdvReac Type Severity Reaction Status Date / Time No Known Allergies Allergy Verified 04/19/22 18:51 Home Medications Medication Instructions Recorded Confirmed Last Taken Type Albuterol Mdi (or & Nicu Only) 2 puff IH QID PRN 30 Days 12/10/18 05/29/22 Unknown Rx [ProAir HFA Inhaler] inhalation Budesoni/Formotero 160-4.5(Nf) 1 puff IH BID 30 Days inha 12/10/18 05/29/22 Unknown Rx [Symbicort 160-4.5 (Nf)] amLODIPine 10 mg PO QDAY #30 tablet 12/10/18 05/29/22 Unknown Rx hydrALAZINE [Apresoline TAB] 50 mg PO Q8HR #90 tablet 12/10/18 05/29/22 Unknown Rx Amiodarone [Cordarone 200 MG TAB] 200 mg PO BID #60 tablet 04/22/22 05/29/22 Unknown Rx Apixaban [Eliquis] 5 mg PO BID #30 tab 04/22/22 05/29/22 Unknown Rx Active Meds: Active Medications Acetaminophen (Acetaminophen 325 Mg Tab) 650 mg PO Q4H PRN PRN Reason: Pain MILD(1-3)/Fever >100.5/MILLER Albuterol (Albuterol 2.5 Mg/3 Ml Nebu) 2.5 mg IH Q4HRT PRN PRN Reason: Shortness Of Breath Amiodarone HCl (Amiodarone 200 Mg Tab) 200 mg PO BID [facility] Last Admin: 05/29/22 02:56 Dose: 200 mg Arformoterol Tartrate (Arformoterol 15 Mcg/2 Ml Nebu) 15 mcg IH Q12HRT [facility] Budesonide (Budesonide 0.5 Mg/2 Ml Nebu) 1 mg IH Q12HRT [facility] Famotidine (Famotidine 20 Mg Tab) 20 mg PO BID [facility] Hydralazine HCl (Hydralazine 25 Mg Tab) 50 mg PO Q8H [facility] Last Admin: 05/29/22 01:45 Dose: Not Given Sodium Chloride (Nacl 0.9% 1000 Ml) 1,000 mls @ 75 mls/hr IV DIRECT [facility] Insulin Human Lispro (Insulin Lispro 100 Unit/Ml) 0 unit SUB-Q ACHS ASHVIN; Protocol Last Admin: 05/29/22 08:01 Dose: Not Given Lorazepam (Lorazepam 0.5 Mg Tab) 0.5 mg PO ONCE PRN PRN Reason: anxiety Last Admin: 05/29/22 01:19 Dose: 0.5 mg Metoclopramide HCl (Metoclopramide 10 Mg/2 Ml Inj) 10 mg IV Q6H PRN PRN Reason: Nausea And Vomiting Morphine Sulfate (Morphine 2 Mg/1 Ml Inj) 2 mg IV Q4H PRN PRN Reason: Pain, Moderate (4-6) Last Admin: 05/29/22 02:55 Dose: 2 mg Naloxone HCl (Naloxone 0.4 Mg/1 Ml Inj) 0.1 mg IV Q2MIN PRN PRN Reason: Res Rate </= 8 or 02 SAT < 92% Ondansetron HCl (Ondansetron 4 Mg/2 Ml Inj) 4 mg IV Q8H PRN PRN Reason: Nausea And Vomiting Oxycodone/Acetaminophen (Oxycodone /Acetaminophen 5-325mg Tab) 1 tab PO Q6H PRN PRN Reason: Pain, Moderate (4-6) Prednisone (Prednisone 50 Mg Tab) 50 mg PO DAILY ASHVIN Sodium Chloride (Sodium Chloride 0.9% 10 Ml Flush Syringe) 10 ml IV BID A[facility] Sodium Chloride (Sodium Chloride 0.9% 10 Ml Flush Syringe) 10 ml IV PRN PRN PRN Reason: LINE FLUSH Exam - Constitutional Vitals: Temp Pulse Resp BP Pulse Ox 98.0 F 121 H 20 143/90 97 05/29/22 07:39 05/29/22 07:39 05/29/22 05:12 05/29/22 07:39 05/29/22 07:39 General appearance: Present: no acute distress, well-nourished - EENT Eyes: Present: PERRL ENT: hearing intact, clear oral mucosa - Neck Neck: Present: supple, normal ROM - Respiratory Respiratory effort: normal Respiratory: bilateral: CTA - Cardiovascular Heart rate: 130 Rhythm: irregularly irregular Heart Sounds: Present: S1 & S2. Absent: rub, click - Extremities Extremities: no ischemia, pulses intact, pulses symmetrical, No edema Peripheral Pulses: within normal limits - Abdominal General gastrointestinal: Present: soft, non-tender, non-distended, normal bowel sounds Male genitourinary: Present: normal - Rectal Rectal Exam: deferred - Integumentary Integumentary: Present: clear, warm, dry - Musculoskeletal Musculoskeletal: gait normal, strength equal bilaterally - Psychiatric Psychiatric: appropriate mood/affect, intact judgment & insight - Neurologic Neurologic: CNII-XII intact, moves all extremities - Allied Health Allied health notes reviewed: nursing, case management HEART Score - HEART Score EKG: Non-specific Age: 45-65 Risk factors: > 3 risk factors or hx of atherosclerotic disease Troponin: Troponin T < 0.010 ng/mL (0.00-0.029) 05/28/22 21:44 Troponin: < normal limit - Critical Actions Critical Actions: 4-6 pts:12-16.6% risk of adverse cardiac event. Should be admitted Results - Labs CBC & Chem 7: 05/28/22 16:27 05/28/22 16:27 Labs: Laboratory Last Values WBC 8.3 K/mm3 (4.5-11.0) 05/28/22 16:27 RBC 4.42 M/mm3 (3.65-5.03) 05/28/22 16:27 Hgb 13.4 gm/dl (11.8-15.2) 05/28/22 16:27 Hct 39.3 % (35.5-45.6) 05/28/22 16:27 MCV 89 fl (84-94) 05/28/22 16:27 MCH 30 pg (28-32) 05/28/22 16: MCHC 34 % (32-34) 05/28/22 16: RDW 14.8 % (13.2-15.2) 05/28/22 16:27 Plt Count 149 K/mm3 (140-440) 05/28/22 16:27 Lymph % (Auto) 21.2 % (13.4-35.0) 05/28/22 16:27 Dent % (Auto) 11.6 % (0.0-7.3) H 05/28/22 16:27 Eos % (Auto) 2.6 % (0.0-4.3) 05/28/22 16: Baso % (Auto) 0.6 % (0.0-1.8) 05/28/22 16:27 Lymph # (Auto) 1.8 K/mm3 (1.2-5.4) 05/28/22 16:27 Dent # (Auto) 1.0 K/mm3 (0.0-0.8) H 05/28/22 16:27 Eos # (Auto) 0.2 K/mm3 (0.0-0.4) 05/28/22 16:27 Baso # (Auto) 0.1 K/mm3 (0.0-0.1) 05/28/22 16:27 Seg Neutrophils % 64.0 % (40.0-70.0) 05/28/22 16:27 Seg Neutrophils # 5.3 K/mm3 (1.8-7.7) 05/28/22 16:27 Sodium 141 mmol/L (137-145) 05/28/22 16:27 Potassium 5.4 mmol/L (3.6-5.0) H 05/28/22 16:27 Chloride 106.1 mmol/L (98-107) 05/28/22 16:27 Carbon Dioxide 23 mmol/L (22-30) 05/28/22 16:27 Anion Gap 17 mmol/L 05/28/22 16:27 BUN 23 mg/dL (9-20) H 05/28/22 16:27 Creatinine 1.0 mg/dL (0.8-1.3) 05/28/22 16:27 Estimated GFR > 60 ml/min 05/28/22 16:27 BUN/Creatinine Ratio 23 % 05/28/22 16:27 Glucose 230 mg/dL (75-100) H 05/28/22 16:27 POC Glucose 113 mg/dL (70-105) H 05/29/22 07:38 Calcium 8.8 mg/dL (8.4-10.2) 05/28/22 16:27 Magnesium 1.80 mg/dL (1.7-2.3) 05/28/22 16:27 Total Bilirubin 0.80 mg/dL (0.1-1.2) 05/28/22 16:27 AST 38 units/L (5-40) 05/28/22 16:27 ALT 61 units/L (7-56) H 05/28/22 16:27 Alkaline Phosphatase 66 units/L (35-129) 05/28/22 16:27 Total Creatine Kinase 54 units/L (55-170) L 05/28/22 16:27 Troponin T < 0.010 ng/mL (0.00-0.029) 05/28/22 21:44 NT-Pro-B Natriuret Pep 3134 pg/mL (0-900) H 05/28/22 16:27 Total Protein 6.0 g/dL (6.3-8.2) L 05/28/22 16:27 Albumin 3.7 g/dL (3.9-5) L 05/28/22 16:27 Albumin/Globulin Ratio 1.6 % 05/28/22 16:27 TSH 1.990 mlU/mL (0.270-4.200) 05/28/22 16:27 - Imaging and Cardiology EKG: report reviewed (Atrial fibrillation with RVR) Chest x-ray: report reviewed Imaging and Cardiology: Chest x-ray No acute findings Harmon/IV: Voiding Method Toilet Assessment and Plan Advance Directives: Yes (Full code) VTE prophylaxis?: Chemical Plan of care discussed with patient/family: Yes - Patient Problems (1) Atrial fibrillation with rapid ventricular response Current Visit: Yes Status: Acute Plan to address problem: Patient was given IV diltiazem in the emergency room Heart rate was down to 90s to 100s Continue amiodarone and Eliquis Cardiology consult requested (2) Elevated brain natriuretic peptide (BNP) level Current Visit: Yes Status: Acute Plan to address problem: Echocardiogram for ejection fraction Lasix if necessary Cardiology consult (3) HTN (hypertension) Current Visit: Yes Status: Chronic Qualifiers: Hypertension type: primary hypertension Qualified Code(s): I10 - Essential (primary) hypertension Plan to address problem: Continue antihypertensives and adjust medications (4) T2DM (type 2 diabetes mellitus) Current Visit: Yes Status: Chronic Qualifiers: 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: unspecified usp insulin use status Plan to address problem: New onset Patient started on metformin and Jardiance Hba1c (5) COPD (chronic obstructive pulmonary disease) Current Visit: Yes Status: Chronic Qualifiers: Emphysema type: unspecified Plan to address problem: Continue Symbicort and DuoNebs (6) Anticoagulation adequate Current Visit: Yes Status: Chronic Plan to address problem: On Eliquis (7) DVT prophylaxis Current Visit: Yes Status: Acute Plan to address problem: On Eliquis and GI prophylaxis (8) Advance care planning Current Visit: Yes Status: Acute Plan to address problem: This is education related care plan discussed, diagnosis discussed prognosis discussed. Patient acknowledged understanding of care plan +30 minutes. Patient is full code.
[2022-05-29] MEDS: BUDESONIDE 0.5 MG/2 ML NEBU IH SCH ×2 (09:20→19:57)
[2022-05-29] MEDS: ARFORMOTEROL 15 MCG/2 ML NEBU IH SCH ×2 (09:20→19:57)
[2022-05-29] MEDS: FAMOTIDINE 20 MG TAB PO SCH ×2 (09:43→22:41)
[2022-05-29] MEDS: LINAGLIPTIN 5 MG TAB PO SCH (09:44)
[2022-05-29] MEDS ORDERED: predniSONE 50 MG TAB PO SCH (10:00)
--- NOTE | 2022-05-29 11:07 | Consultation ---
History of Present Illness Consult date: 05/29/22 History of present illness: 56-year-old obese old male who with a history of COPD hypertension and atrial fibrillation presenting with symptoms of shortness of breath and chest tightness by the time of my evaluation patient is comfortable denies any history of shortness of breath or chest pain. Past History Past Medical History: atrial fib, diabetes, hypertension, hyperlipidemia Past Surgical History: denies: No surgical history Medications and Allergies Allergies Allergy/AdvReac Type Severity Reaction Status Date / Time No Known Allergies Allergy Verified 04/19/22 18:51 Home Medications Medication Instructions Recorded Confirmed Last Taken Type Albuterol Mdi (or & Nicu Only) 2 puff IH QID PRN 30 Days 12/10/18 05/29/22 Unknown Rx [ProAir HFA Inhaler] inhalation Budesoni/Formotero 160-4.5(Nf) 1 puff IH BID 30 Days inha 12/10/18 05/29/22 Unknown Rx [Symbicort 160-4.5 (Nf)] amLODIPine 10 mg PO QDAY #30 tablet 12/10/18 05/29/22 Unknown Rx hydrALAZINE [Apresoline TAB] 50 mg PO Q8HR #90 tablet 12/10/18 05/29/22 Unknown Rx Amiodarone [Cordarone 200 MG TAB] 200 mg PO BID #60 tablet 04/22/22 05/29/22 Unknown Rx Apixaban [Eliquis] 5 mg PO BID #30 tab 04/22/22 05/29/22 Unknown Rx Active Meds: Active Medications Acetaminophen (Acetaminophen 325 Mg Tab) 650 mg PO Q4H PRN PRN Reason: Pain MILD(1-3)/Fever >100.5/MILLER Albuterol (Albuterol 2.5 Mg/3 Ml Nebu) 2.5 mg IH Q4HRT PRN PRN Reason: Shortness Of Breath Amiodarone HCl (Amiodarone 200 Mg Tab) 200 mg PO BID [facility] Last Admin: 05/29/22 09:43 Dose: 200 mg Arformoterol Tartrate (Arformoterol 15 Mcg/2 Ml Nebu) 15 mcg IH Q12HRT [facility] Last Admin: 05/29/22 09:20 Dose: 15 mcg Budesonide (Budesonide 0.5 Mg/2 Ml Nebu) 1 mg IH Q12HRT [facility] Last Admin: 05/29/22 09:20 Dose: 1 mg Famotidine (Famotidine 20 Mg Tab) 20 mg PO BID [facility] Last Admin: 05/29/22 09:43 Dose: 20 mg Hydralazine HCl (Hydralazine 25 Mg Tab) 50 mg PO Q8H [facility] Last Admin: 05/29/22 09:44 Dose: 50 mg Sodium Chloride (Nacl 0.9% 1000 Ml) 1,000 mls @ 75 mls/hr IV DIRECT [facility] Insulin Human Lispro (Insulin Lispro 100 Unit/Ml) 0 unit SUB-Q ACHS [facility]; Protocol Last Admin: 05/29/22 08:01 Dose: Not Given Linagliptin (Linagliptin 5 Mg Tab) 5 mg PO QDDIAB [facility] Last Admin: 05/29/22 09:44 Dose: 5 mg Lorazepam (Lorazepam 0.5 Mg Tab) 0.5 mg PO ONCE PRN PRN Reason: anxiety Last Admin: 05/29/22 01:19 Dose: 0.5 mg Metformin HCl (Metformin 500 Mg Tab) 500 mg PO BIDDIAB [facility] Metoclopramide HCl (Metoclopramide 10 Mg/2 Ml Inj) 10 mg IV Q6H PRN PRN Reason: Nausea And Vomiting Morphine Sulfate (Morphine 2 Mg/1 Ml Inj) 2 mg IV Q4H PRN PRN Reason: Pain, Moderate (4-6) Last Admin: 05/29/22 02:55 Dose: 2 mg Naloxone HCl (Naloxone 0.4 Mg/1 Ml Inj) 0.1 mg IV Q2MIN PRN PRN Reason: Res Rate </= 8 or 02 SAT < 92% Ondansetron HCl (Ondansetron 4 Mg/2 Ml Inj) 4 mg IV Q8H PRN PRN Reason: Nausea And Vomiting Oxycodone/Acetaminophen (Oxycodone /Acetaminophen 5-325mg Tab) 1 tab PO Q6H PRN PRN Reason: Pain, Moderate (4-6) Prednisone (Prednisone 50 Mg Tab) 50 mg PO DAILY [facility] Last Admin: 05/29/22 09:44 Dose: 50 mg Sodium Chloride (Sodium Chloride 0.9% 10 Ml Flush Syringe) 10 ml IV BID [facility] Last Admin: 05/29/22 09:47 Dose: Not Given Sodium Chloride (Sodium Chloride 0.9% 10 Ml Flush Syringe) 10 ml IV PRN PRN PRN Reason: LINE FLUSH Review of Systems Constitutional: weight gain, weakness, no fever, no chills, no anorexia Ears, nose, mouth and throat: no ear pain, no ear discharge, no tinnitis, no nose pain, no nasal discharge Cardiovascular: orthopnea, palpitations, no edema, no syncope, no lighthea dedness, no shortness of breath Respiratory: no excessive sputum, no hemoptysis, no shortness of breath, no dyspnea on exertion Gastrointestinal: no nausea, no vomiting, no diarrhea Genitourinary Male: no dysuria, no hematuria, no flank pain Rectal: no pain, no incontinence Musculoskeletal: no neck pain, no arm numbness/tingling, no low back pain, no shooting leg pain, no leg numbness/tingling Integumentary: no rash, no pruritis Neurological: no weakness, no parathesias, no numbness, no tingling Endocrine: no cold intolerance, no heat intolerance, no polyphagia, no polydipsia, no polyuria, no nocturia Hematologic/Lymphatic: no easy bruising, no easy bleeding Allergic/Immunologic: no urticaria, no allergic rhinitis, no wheezing Physical Examination Vital Signs Temp Pulse Resp BP Pulse Ox 98 F 78 24 117/83 97 05/28/22 15:31 05/28/22 15:31 05/28/22 15:31 05/28/22 15:31 05/28/22 15:31 General appearance: no acute distress, obese HEENT: Positive: PERRL, Normocephaly, Mucus Membranes Moist Neck: Positive: neck supple, trachea midline. Negative: JVD/HJR Cardiac: Positive: S1/S2, PMI, Laterally Displaced. Negative: irregularly irregular, S3, S4 Lungs: Positive: clear to auscultation, No Wheeze, Rales, Rhonchi Abdomen: Positive: Unremarkable. Negative: Active Bowel Sounds Extremities: Absent: edema Results 05/28/22 16:27 05/28/22 16:27 Cardiac Enzymes 05/28/22 Range/Units 16:27 AST 38 (5-40) units/L CBC 05/28/22 Range/Units 16:27 WBC 8.3 (4.5-11.0) K/mm3 RBC 4.42 (3.65-5.03) M/mm3 Hgb 13.4 (11.8-15.2) gm/dl Hct 39.3 (35.5-45.6) % Plt Count 149 (140-440) K/mm3 Lymph # (Auto) 1.8 (1.2-5.4) K/mm3 [place] # (Auto) 1.0 H (0.0-0.8) K/mm3 Eos # (Auto) 0.2 (0.0-0.4) K/mm3 Baso # (Auto) 0.1 (0.0-0.1) K/mm3 Comprehensive Metabolic Panel 05/28/22 Range/Units 16:27 Sodium 141 (137-145) mmol/L Potassium 5.4 H (3.6-5.0) mmol/L Chloride 106.1 (98-107) mmol/L Carbon Dioxide 23 (22-30) mmol/L BUN 23 H (9-20) mg/dL Creatinine 1.0 (0.8-1.3) mg/dL Glucose 230 H (75-100) mg/dL Calcium 8.8 (8.4-10.2) mg/dL AST 38 (5-40) units/L ALT 61 H (7-56) units/L Alkaline Phosphatase 66 (35-129) units/L Total Protein 6.0 L (6.3-8.2) g/dL Albumin 3.7 L (3.9-5) g/dL - EKG Interpretation EKG shows: atrial fibrillation EKG interpretations - Telemetry EKG Rhythm: Atrial Fibrillation Assessment and Plan 1. Atrial fibrillation with rapid ventricular response 2. Type 2 diabetes mellitus 3. Obesity unspecified 4. Essential hypertension 5. Hyperlipidemia Previous echocardiogram done had showed normal left ventricular size normal right ventricular size with normal wall thickness normal global and regional function with a normal ejection fraction of the left ventricle. Chest x-ray shows no acute cardiopulmonary process. There is a history of noncompliance on medication and disposition Serum troponin levels are normal. As well as the TSH level Plan. Resume home cardiac medications of amiodarone and Eliquis. Education about the importance of compliance on medication.
[2022-05-29 11:54] LABS: Basophils % (Auto) 0.5 % (0.0-1.8); Eosinophils # (Auto) 0.3 K/mm3 (0.0-0.4); Eosinophils % (Auto) 2.6 % (0.0-4.3); Hematocrit 41.5 % (35.5-45.6); Hemoglobin 14.3 gm/dl (11.8-15.2); Lymphocytes # (Auto) 1.8 K/mm3 (1.2-5.4); Mean Corpuscular HGB Conc 34 % (32-34); Mean Corpuscular Volume 89 fl (84-94); Monocytes # (Auto) 0.9 K/mm3 (0.0-0.8); Monocytes % (Auto) 8.9 % (0.0-7.3); Platelet Count 152 K/mm3 (140-440); Red Blood Count 4.68 M/mm3 (3.65-5.03); Red Cell Distribution Width 14.6 % (13.2-15.2)
[2022-05-29 12:10] LABS: Alanine Aminotransferase 59 units/L (7-56); Albumin 3.7 g/dL (3.9-5); BUN/Creatinine Ratio 19; Blood Urea Nitrogen 19 mg/dL (9-20); Calcium 8.8 mg/dL (8.4-10.2); Hemolysis Index 5
[2022-05-29] MEDS: oxyCODONE /ACETAMINOPHEN 5-325MG TAB PO PRN ×2 (14:01→22:42)
[2022-05-29] MEDS ORDERED: HEPARIN 10,000 UNITS/10 ML VIAL IV PRN (14:37)
--- NOTE | 2022-05-29 14:44 | Electrocardiograph Report ---
[facility] Test Date: 2022-05-28 Test Time: 15:36:31 Pat Name: YESIKA BACON Department: Room: A474 1 Gender: M Onsite Case Manager: PERI : 1965 Requested By: DARCI MICHAUD Order Number: [id number] Reading MD: Nighat Sidhu Measurements Intervals [place] Rate: 145 P: VT: QRS: -16 QRSD: 86 T: 86 QT: 314 QTc: 489 Interpretive Statements Atrial fibrillation Anterior infarct, old Compared to ECG 04/19/2022 18:18:38 No significant changes Electronically Signed On 05-29-2022 14:43:47 EDT by Nighat Sidhu
--- NOTE | 2022-05-29 14:44 | Electrocardiograph Report ---
[facility] Test Date: 2022-05-28 Test Time: 15:37:29 Pat Name: YESIKA BACON Department: Room: A474 1 Gender: M Production Support Developer: PERI : 1965 Requested By: DARCI MICHAUD Order Number: [id number] Reading MD: Nighat Sidhu Measurements Intervals [place] Rate: 140 P: [place]: QRS: -21 QRSD: 93 T: 79 QT: 330 QTc: 505 Interpretive Statements Atrial fibrillation Anterior infarct, old Prolonged QT interval Compared to ECG 05/28/2022 15:36:31 Prolonged QT interval now present Myocardial infarct finding still present Electronically Signed On 05-29-2022 14:43:51 EDT by Nighat Sidhu
[2022-05-29] MEDS ORDERED: DIGOXIN 0.5 MG/2 ML INJ IV SCH (15:00)
[2022-05-29] MEDS: HEPARIN/ 0.45% NACL DRIP 25,000 UNIT/500 ML BAG IV SCH (15:56)
[2022-05-29 16:51] LABS: Hematocrit 43.4 % (35.5-45.6); Hemoglobin 14.4 gm/dl (11.8-15.2)
[2022-05-29 16:58] LABS: INR 0.97 (0.87-1.13); Partial Thromboplastin Time 32.3 Sec. (24.2-36.6)
[2022-05-29] MEDS: metFORMIN 500 MG TAB PO SCH (18:10)
--- NOTE | 2022-05-29 21:40 | Progress Note ---
Hospitalist Physical - Constitutional Vitals: Temp Pulse Resp BP Pulse Ox 98.4 F 116 H 16 139/91 99 05/29/22 11:26 05/29/22 19:58 05/29/22 19:58 05/29/22 11:26 05/29/22 11:26 General appearance: Present: no acute distress, obese HEART Score - HEART Score EKG: Non-specific Age: 45-65 Risk factors: > 3 risk factors or hx of atherosclerotic disease Troponin: Troponin T < 0.010 ng/mL (0.00-0.029) 05/28/22 21:44 Troponin: < normal limit - Critical Actions Critical Actions: 4-6 pts:12-16.6% risk of adverse cardiac event. Should be admitted Results - Labs CBC & Chem 7: 05/29/22 15:48 05/29/22 11:23 Labs: Laboratory Last Values WBC 10.6 K/mm3 (4.5-11.0) 05/29/22 05:00 RBC 4.68 M/mm3 (3.65-5.03) 05/29/22 05:00 Hgb 14.4 gm/dl (11.8-15.2) 05/29/22 15:48 Hct 43.4 % (35.5-45.6) 05/29/22 15:48 MCV 89 fl (84-94) 05/29/22 05:00 MCH 31 pg (28-32) 05/29/22 05:00 MCHC 34 % (32-34) 05/29/22 05:00 RDW 14.6 % (13.2-15.2) 05/29/22 05:00 Plt Count 151 K/mm3 (140-440) 05/29/22 15:48 Lymph % (Auto) 17.0 % (13.4-35.0) 05/29/22 05:00 [place] % (Auto) 8.9 % (0.0-7.3) H 05/29/22 05:00 Eos % (Auto) 2.6 % (0.0-4.3) 05/29/22 05:00 Baso % (Auto) 0.5 % (0.0-1.8) 05/29/22 05:00 Lymph # (Auto) 1.8 K/mm3 (1.2-5.4) 05/29/22 05:00 [place] # (Auto) 0.9 K/mm3 (0.0-0.8) H 05/29/22 05:00 Eos # (Auto) 0.3 K/mm3 (0.0-0.4) 05/29/22 05:00 Baso # (Auto) 0.0 K/mm3 (0.0-0.1) 05/29/22 05:00 Seg Neutrophils % 71.0 % (40.0-70.0) H 05/29/22 05:00 Seg Neutrophils # 7.5 K/mm3 (1.8-7.7) 05/29/22 05:00 PT 14.0 Sec. (12.2-14.9) 05/29/22 15:48 INR 0.97 (0.87-1.13) 05/29/22 15:48 APTT 32.3 Sec. (24.2-36.6) 05/29/22 15:48 Sodium 136 mmol/L (137-145) L 05/29/22 11:23 Potassium 4.9 mmol/L (3.6-5.0) 05/29/22 11:23 Chloride 98.7 mmol/L (98-107) 05/29/22 11:23 Carbon Dioxide 28 mmol/L (22-30) 05/29/22 11:23 Anion Gap 14 mmol/L 05/29/22 11:23 BUN 19 mg/dL (9-20) 05/29/22 11:23 Creatinine 1.0 mg/dL (0.8-1.3) 05/29/22 11:23 Estimated GFR > 60 ml/min 05/29/22 11:23 BUN/Creatinine Ratio 19 % 05/29/22 11:23 Glucose 270 mg/dL (75-100) H 05/29/22 11:23 POC Glucose 373 mg/dL (70-105) H 05/29/22 20:24 Calcium 8.8 mg/dL (8.4-10.2) 05/29/22 11:23 Magnesium 1.80 mg/dL (1.7-2.3) 05/28/22 16:27 Total Bilirubin 1.50 mg/dL (0.1-1.2) H 05/29/22 11:23 AST 28 units/L (5-40) 05/29/22 11:23 ALT 59 units/L (7-56) H 05/29/22 11:23 Alkaline Phosphatase 74 units/L (35-129) 05/29/22 11:23 Total Creatine Kinase 54 units/L (55-170) L 05/28/22 16:27 Troponin T < 0.010 ng/mL (0.00-0.029) 05/28/22 21:44 NT-Pro-B Natriuret Pep 3134 pg/mL (0-900) H 05/28/22 16:27 Total Protein 6.1 g/dL (6.3-8.2) L 05/29/22 11:23 Albumin 3.7 g/dL (3.9-5) L 05/29/22 11:23 Albumin/Globulin Ratio 1.5 % 05/29/22 11:23 TSH 1.990 mlU/mL (0.270-4.200) 05/28/22 16:27 [place]/IV: Voiding Method Toilet Active Medications - Current Medications Current Medications: Generic Name Dose Route Start Last Admin Trade Name Freq PRN Reason Stop Dose Admin Acetaminophen 650 mg 05/29/22 01:13 Acetaminophen 325 Mg Tab PO Q4H PRN Pain MILD(1-3)/Fever >100.5/MILLER Albuterol 2.5 mg 05/29/22 01:29 Albuterol 2.5 Mg/3 Ml Nebu IH Q4HRT PRN Shortness Of Breath Amiodarone HCl 200 mg 05/29/22 02:00 05/29/22 09:43 Amiodarone 200 Mg Tab PO 200 mg BID ASHVIN Administration Arformoterol Tartrate 15 mcg 05/29/22 08:00 05/29/22 19:57 Arformoterol 15 Mcg/2 Ml Nebu IH 15 mcg Q12HRT ASHVIN Administration Budesonide 1 mg 05/29/22 08:00 05/29/22 19:57 Budesonide 0.5 Mg/2 Ml Nebu IH 1 mg Q12HRT ASHVIN Administration Famotidine 20 mg 05/29/22 10:00 05/29/22 09:43 Famotidine 20 Mg Tab PO 20 mg BID ASHVIN Administration Heparin Sodium (Porcine) 5,800 unit 05/29/22 14:37 Heparin 10,000 Units/10 Ml Vial 40 unit/kg (5800 unit) IV Q6H PRN Anti-Xa Assay < 0.1 units/ml Hydralazine HCl 50 mg 05/29/22 02:00 05/29/22 18:12 Hydralazine 25 Mg Tab PO 50 mg Q8H ASHVIN Administration Sodium Chloride 1,000 mls @ 75 mls/hr 05/29/22 01:15 Nacl 0.9% 1000 Ml IV DIRECT ASHVIN Heparin Sodium/Sodium Chloride 25,000 unit in 500 mls @ 30 mls/hr 05/29/22 15:00 05/29/22 15:56 Heparin/ 0.45% Nacl-25,000 Unit/500 Ml IV 1,500 units/hr TITR ASHVIN 30 mls/hr Administration Protocol 1,500 UNITS/HR Insulin Human Lispro 0 unit 05/29/22 00:20 05/29/22 16:07 Insulin Lispro 100 Unit/Ml SUB-Q Not Given ACHS ASHVIN Protocol Linagliptin 5 mg 05/29/22 09:00 05/29/22 09:44 Linagliptin 5 Mg Tab PO 5 mg QDDIAB ASHVIN Administration Lorazepam 0.5 mg 05/29/22 00:21 05/29/22 01:19 Lorazepam 0.5 Mg Tab PO 0.5 mg ONCE PRN Administration anxiety Metformin HCl 500 mg 05/29/22 17:00 05/29/22 18:10 Metformin 500 Mg Tab PO 500 mg BIDDIAB ASHVIN Administration Metoclopramide HCl 10 mg 05/29/22 01:13 Metoclopramide 10 Mg/2 Ml Inj IV Q6H PRN Nausea And Vomiting Morphine Sulfate 2 mg 05/29/22 01:13 05/29/22 02:55 Morphine 2 Mg/1 Ml Inj IV 2 mg Q4H PRN Administration Pain, Moderate (4-6) Naloxone HCl 0.1 mg 05/28/22 17:53 Naloxone 0.4 Mg/1 Ml Inj IV Q2MIN PRN Res Rate </= 8 or 02 SAT < 92% Ondansetron HCl 4 mg 05/29/22 01:13 Ondansetron 4 Mg/2 Ml Inj IV Q8H PRN Nausea And Vomiting Oxycodone/Acetaminophen 1 tab 05/29/22 01:13 05/29/22 14:01 Oxycodone /Acetaminophen 5-325mg Tab PO 1 tab Q6H PRN Administration Pain, Moderate (4-6) Prednisone 50 mg 05/29/22 10:00 05/29/22 09:44 Prednisone 50 Mg Tab PO 50 mg DAILY ASHVIN Administration Sodium Chloride 10 ml 05/29/22 10:00 05/29/22 09:47 Sodium Chloride 0.9% 10 Ml Flush Syringe IV Not Given BID ASHVIN Sodium Chloride 10 ml 05/29/22 01:13 Sodium Chloride 0.9% 10 Ml Flush Syringe IV PRN PRN LINE FLUSH
[2022-05-30] MEDS: hydrALAZINE 25 MG TAB PO SCH ×2 (07:56→09:59)
[2022-05-30] MEDS ORDERED: HEPARIN 10,000 UNITS/10 ML VIAL IV PRN (08:00)
[2022-05-30] MEDS: INSULIN LISPRO 100 UNIT/ML SUB-Q SCH (08:45)
[2022-05-30] MEDS: ARFORMOTEROL 15 MCG/2 ML NEBU IH SCH (09:16)
[2022-05-30] MEDS: BUDESONIDE 0.5 MG/2 ML NEBU IH SCH (09:16)
[2022-05-30 09:30] LABS: BUN/Creatinine Ratio 22; Blood Urea Nitrogen 22 mg/dL (9-20); Calcium 8.8 mg/dL (8.4-10.2); Hemolysis Index 0
[2022-05-30] MEDS: HEPARIN/ 0.45% NACL DRIP 25,000 UNIT/500 ML BAG IV SCH (09:59)
[2022-05-30] MEDS: AMIODARONE 200 MG TAB PO SCH (10:00)
[2022-05-30] MEDS: metFORMIN 500 MG TAB PO SCH (10:00)
[2022-05-30] MEDS: FAMOTIDINE 20 MG TAB PO SCH (10:00)
[2022-05-30] MEDS: LINAGLIPTIN 5 MG TAB PO SCH (10:00)
[2022-05-30 11:14] VITALS: BP 127/67
--- NOTE | 2022-05-30 12:51 | Progress Note ---
Assessment and Plan . Atrial fibrillation with rapid ventricular response 2. Type 2 diabetes mellitus 3. Obesity unspecified 4. Essential hypertension 5. Hyperlipidemia Previous echocardiogram done had showed normal left ventricular size normal right ventricular size with normal wall thickness normal global and regional function with a normal ejection fraction of the left ventricle. Chest x-ray shows no acute cardiopulmonary process. There is a history of noncompliance on medication and disposition Serum troponin levels are normal. As well as the TSH level Plan. Resume home cardiac medications of amiodarone and Eliquis. Education about the importance of compliance on medication. Subjective Interval history: Patient doing well. Denies any chest pain shortness of breath orthopnea or palpitations. Objective Vital Signs Temp Pulse Pulse Resp Resp Resp BP 05/30/22 11:13 98.0 F 115 H 18 127/67 05/30/22 10:00 111 H 05/30/22 09:59 104 H 152/80 05/30/22 09:16 119 H 20 05/30/22 08:02 98.4 F 104 H 18 152/80 05/30/22 04:56 97.5 F L 101 H 18 123/69 05/30/22 00:49 98.6 F 18 125/70 05/29/22 22:23 97.4 F L 111 H 20 130/77 05/29/22 22:00 117 H 05/29/22 20:00 20 05/29/22 19:58 116 H 16 Pulse Ox 05/30/22 11:13 95 05/30/22 10:00 98 05/30/22 09:59 05/30/22 09:16 05/30/22 08:02 97 05/30/22 04:56 96 05/30/22 00:49 05/29/22 22:23 99 05/29/22 22:00 05/29/22 20:00 95 05/29/22 19:58 - Physical Examination General: Other (We will) HEENT: Positive: PERRL, Normocephaly, Mucus Membranes Moist Neck: Positive: neck supple, trachea midline. Negative: JVD/HJR Lungs: Positive: clear to auscultation, Decreased Breath Sounds, No Wheeze, Rales, Rhonchi Neuro: Positive: Grossly Intact Abdomen: Positive: Unremarkable. Negative: Active Bowel Sounds Skin: Negative: Rash Extremities: Absent: edema - Labs and Meds Coagulation 05/29/22 Range/Units 15:48 PT 14.0 (12.2-14.9) Sec. INR 0.97 (0.87-1.13) APTT 32.3 (24.2-36.6) Sec. CBC 05/29/22 Range/Units 15:48 Hgb 14.4 (11.8-15.2) gm/dl Hct 43.4 (35.5-45.6) % Plt Count 151 (140-440) K/mm3 Comprehensive Metabolic Panel 05/30/22 Range/Units Unknown Sodium 140 (137-145) mmol/L Potassium 4.6 (3.6-5.0) mmol/L Chloride 101.4 (98-107) mmol/L Carbon Dioxide 27 (22-30) mmol/L BUN 22 H (9-20) mg/dL Creatinine 1.0 (0.8-1.3) mg/dL Glucose 139 H (75-100) mg/dL Calcium 8.8 (8.4-10.2) mg/dL - Imaging and Cardiology EKG: report reviewed (Atrial fibrillation with RVR)
== END 2022-05-30 12:29 | disposition home or self-care (01) ==
LOC: ED 15:20 → INTOOBSV 17:53 → 4A 17:53
PROVIDERS: ADMIT Internal Medicine; ATTEND Internal Medicine
DX: I48.20 Chronic atrial fibrillation, unspecified (principal); I11.0 Hypertensive heart disease with heart failure; I50.9 Heart failure, unspecified; E11.9 Type 2 diabetes mellitus without complications; J44.9 Chronic obstructive pulmonary disease, unspecified; E66.9 Obesity, unspecified; E78.5 Hyperlipidemia, unspecified; Z79.01 Long term (current) use of anticoagulants; Z79.899 Other long term (current) drug therapy
CPT/HCPCS: 36415; 71046; 80048; 80053; 82550; 82962; 83036; 83735; 83880; 84443; 84484; 85014; 85018; 85025; 85049; 85520; 85610; 85730; 93005; 94640; 96365; 96366; 96372; 96375; 96376; 99291; C8929; G0378; J1160; J1644; J2270; J3490; J7512; 93306; Q9967; J1815

== ENCOUNTER 2022-06-26 17:04 | Observation (INO) | payer BC ==
--- NOTE | 2022-06-26 17:34 | Event Note ---
Date: 06/26/22 Medical screening examination note Verbal report received from emergency medical services. EMS documentation not available at time of chart dictation 56-year-old gentleman brought to the hospital by EMS with a complaint of not feeling well for 3 days. Past medical history includes A. fib, with recently preserved ejection fraction, noncompliance, morbid obesity, diabetes, hypertension and COPD. EMS reports A. fib with RVR, heart rate 114 to 120 bpm, blood pressure 95/65. Patient awake and alert, protecting airway, moving 4 extremities, mildly anxious, but otherwise does not appear to be in any acute distress. Obtain appropriate laboratory studies, EKG, place patient on cardiac cath technician, detailed history and physical to be performed by myself or oncoming ER provider.
--- NOTE | 2022-06-26 17:53 | XRay Report ---
CHEST 2 VIEWS INDICATION / CLINICAL INFORMATION: Dyspnea. COMPARISON: 05/28/2022 FINDINGS: SUPPORT DEVICES: None. HEART / MEDIASTINUM: No significant abnormality. LUNGS / PLEURA: No significant pulmonary or pleural abnormality. No pneumothorax. ADDITIONAL FINDINGS: No significant additional findings. IMPRESSION: 1. No acute findings. Signer Name: Kendall Martinez MD Signed: 06/26/2022 5:49 PM Workstation Name: [id number]
[2022-06-26 18:17] LABS: Basophils # (Auto) 0.1 K/mm3 (0.0-0.1); Eosinophils # (Auto) 0.1 K/mm3 (0.0-0.4); Eosinophils % (Auto) 1.5 % (0.0-4.3); Hematocrit 51.1 % (35.5-45.6); Hemoglobin 16.6 gm/dl (11.8-15.2); Lymphocytes # (Auto) 1.8 K/mm3 (1.2-5.4); Lymphocytes % (Auto) 18.9 % (13.4-35.0); Mean Corpuscular HGB Conc 33 % (32-34); Mean Corpuscular Volume 88 fl (84-94); Monocytes % (Auto) 11.2 % (0.0-7.3); Platelet Count 215 K/mm3 (140-440); Red Blood Count 5.83 M/mm3 (3.65-5.03); Red Cell Distribution Width 13.7 % (13.2-15.2)
[2022-06-26 18:27] LABS: INR 0.88 (0.87-1.13)
[2022-06-26 18:28] LABS: Partial Thromboplastin Time 28.2 Sec. (24.2-36.6)
[2022-06-26 18:42] LABS: Alanine Aminotransferase 38 units/L (7-56); Albumin 4.3 g/dL (3.9-5); BUN/Creatinine Ratio 18; Blood Urea Nitrogen 24 mg/dL (9-20); Calcium 9.6 mg/dL (8.4-10.2); Hemolysis Index 5
[2022-06-26] MEDS ORDERED: dilTIAZem 25 MG/5 ML INJ IV ONE ×3 (20:30→21:20)
[2022-06-26] MEDS ORDERED: NON-FORMULARY EACH (Apixaban 5 MG Tablet) PO STA (20:31)
[2022-06-26] MEDS ORDERED: APIXABAN 5 MG TAB PO STA (20:39)
[2022-06-26] MEDS ORDERED: diphenhydrAMINE 50 MG/ML VIAL IV ONE ×2 (21:15→21:20)
[2022-06-26] MEDS ORDERED: FAMOTIDINE 20 MG/2 ML INJ IV ONE (21:24)
[2022-06-26] MEDS ORDERED: methylPREDNISolone Sod Succinate 125 MG/2 ML INJ IV ONE (21:24)
[2022-06-26] MEDS ORDERED: METOPROLOL TARTRATE 5 MG/5 ML INJ IV ONE (21:36)
[2022-06-26] MEDS ORDERED: METOPROLOL TARTRATE 50 MG TAB PO ONE (21:36)
--- NOTE | 2022-06-26 21:42 | Emergency Department Report ---
ED General Adult HPI - General Chief complaint: Arrhythmia/Palpitations Stated complaint: My heart is beating fast PUI?: No Time Seen by Provider: 06/26/22 20:13 Source: patient, EMS (Verbal report received from emergency medical services. EMS documentation not available at time of chart dictation ), RN notes reviewed, old records reviewed Mode of arrival: Stretcher Limitations: No Limitations - History of Present Illness Initial comments: The patient was evaluated in the emergency department for symptoms described in the history of present illness. He/she was evaluated in the context of the global COVID-19 pandemic, which necessitated consideration that the patient might be at risk for infection with the virus that causes COVID-19. Institutional protocols and algorithms that pertain to the evaluation of patients at risk for COVID-19 are in a state of rapid change based on information released by regulatory bodies including the CDC and federal and state organizations. These policies and algorithms were followed during the patient's care in the emergency department. Please note that these policies, procedures and recommendations changed on a rapid basis. This is a 56-year-old gentleman, who is morbidly obese, with a history of A. fib, compliant with Eliquis, COPD, not on home oxygen. He presents to the department today with a complaint of chest tightness, and rapid heartbeat. He reports compliance with his medications. Currently denies headache, neck pain, abdominal pain, vomiting, diaphoresis, hematemesis, bright red blood per rectum, and urinary symptoms. He is mildly anxious. -: Sudden Location: chest Severity scale (0 -10): 0 Consistency: constant Improves with: none Worsens with: none - Related Data Previous Rx's Medication Instructions Recorded Last Taken Type Albuterol Mdi (or & Nicu Only) 2 puff IH QID PRN 30 Days 12/10/18 Unknown Rx [ProAir HFA Inhaler] inhalation Budesoni/Formotero 160-4.5(Nf) 1 puff IH BID 30 Days inha 12/10/18 Unknown Rx [Symbicort 160-4.5 (Nf)] amLODIPine 10 mg PO QDAY #30 tablet 12/10/18 Unknown Rx hydrALAZINE [Apresoline TAB] 50 mg PO Q8HR #90 tablet 12/10/18 Unknown Rx Amiodarone [Cordarone 200 MG TAB] 200 mg PO BID #60 tablet 04/22/22 Unknown Rx Apixaban [Eliquis] 5 mg PO BID #30 tab 04/22/22 Unknown Rx Allergies Allergy/AdvReac Type Severity Reaction Status Date / Time No Known Allergies Allergy Verified 06/09/22 07:09 ED Review of Systems ROS: Stated complaint: CHEST PAIN Other details as noted in HPI Constitutional: denies: fever Eyes: denies: eye discharge Respiratory: denies: wheezing Cardiovascular: chest pain, palpitations Gastrointestinal: denies: abdominal pain, hematemesis, melena, hematochezia Genitourinary: denies: dysuria Neurological: denies: headache Psychiatric: anxiety Hematological/Lymphatic: denies: easy bleeding ED Past Medical Hx - Past Medical History Hx Hypertension: Yes Hx Congestive Heart Failure: Yes Hx Diabetes: Yes Hx Asthma: No Hx COPD: Yes Additional medical history: Atrial fibrillation - Surgical History Hx Appendectomy: Yes Additional Surgical History: Tonsilectomy - Social History Smoking Status: Former Smoker - Medications Home Medications: Home Medications Medication Instructions Recorded Confirmed Last Taken Type Albuterol Mdi (or & Nicu Only) 2 puff IH QID PRN 30 Days 12/10/18 05/29/22 Unknown Rx [ProAir HFA Inhaler] inhalation Budesoni/Formotero 160-4.5(Nf) 1 puff IH BID 30 Days inha 12/10/18 05/29/22 Unknown Rx [Symbicort 160-4.5 (Nf)] amLODIPine 10 mg PO QDAY #30 tablet 12/10/18 05/29/22 Unknown Rx hydrALAZINE [Apresoline TAB] 50 mg PO Q8HR #90 tablet 12/10/18 05/29/22 Unknown Rx Amiodarone [Cordarone 200 MG TAB] 200 mg PO BID #60 tablet 04/22/22 05/29/22 Unknown Rx Apixaban [Eliquis] 5 mg PO BID #30 tab 04/22/22 05/29/22 Unknown Rx ED Physical Exam - General Limitations: No Limitations General appearance: alert, anxious, obese - Head Head exam: Present: atraumatic, normocephalic - Eye Eye exam: Present: normal appearance, EOMI. Absent: nystagmus - ENT ENT exam: Present: normal exam, normal orophraynx, mucous membranes moist, normal external ear exam - Neck Neck exam: Present: normal inspection, full ROM. Absent: tenderness, m eningismus - Respiratory Respiratory exam: Present: decreased breath sounds. Absent: respiratory distress, wheezes, rales, rhonchi, stridor - Cardiovascular Cardiovascular Exam: Present: tachycardia, irregular rhythm, normal heart sounds. Absent: systolic murmur, diastolic murmur, rubs, gallop - GI/Abdominal GI/Abdominal exam: Present: soft. Absent: distended, tenderness, guarding, rebound, rigid, pulsatile mass - Rectal Rectal exam: Present: deferred - Extremities Exam Extremities exam: Present: normal inspection, full ROM, other (2+ pulses noted in the bilateral upper and lower extremities. There is no palpable cord. negative Homans sign. Muscular compartments are soft. The pelvis is stable.). Absent: calf tenderness - Back Exam Back exam: Present: normal inspection, full ROM. Absent: tenderness, CVA tenderness (R), CVA tenderness (L), paraspinal tenderness, vertebral tenderness - Neurological Exam Neurological exam: Present: alert, oriented X3, other (No facial droop. Tongue midline. Extraocular movements intact bilaterally. Facial sensation intact to light touch in V1, V2, V3 distribution bilaterally. 5 and a 5 strength in 4 extremities. Sensation intact to light touch in 4 extremities.). Absent: motor sensory deficit - Psychiatric Psychiatric exam: Present: anxious - Skin Skin exam: Present: warm, dry, intact, normal color. Absent: rash ED Course Vital Signs 06/26/22 06/26/22 06/26/22 17:22 20:07 20:16 Temperature Pulse Rate 112 H 138 H 112 H Respiratory 18 16 24 Rate Blood Pressure 145/72 Blood Pressure 100/70 [Left] O2 Sat by Pulse 98 97 98 Oximetry 06/26/22 06/26/22 06/26/22 20:28 20:30 20:46 Temperature 98.5 F Pulse Rate 116 H 123 H Respiratory 17 20 Rate Blood Pressure 134/80 144/82 Blood Pressure [Left] O2 Sat by Pulse 96 95 Oximetry 06/26/22 06/26/22 06/26/22 21:00 21:16 21:30 Temperature Pulse Rate 101 H 104 H 103 H Respiratory 15 19 17 Rate Blood Pressure 145/78 133/101 157/101 Blood Pressure [Left] O2 Sat by Pulse 96 95 99 Oximetry 09/09/0606/26/22 06/26/22 21:34 21:46 22:00 Temperature Pulse Rate 108 H 123 H 114 H Respiratory 28 H 20 Rate Blood Pressure 142/88 135/54 116/58 Blood Pressure [Left] O2 Sat by Pulse 98 98 Oximetry 06/26/22 06/26/22 22:35 22:37 Temperature Pulse Rate 118 H 118 H Respiratory Rate Blood Pressure 133/87 133/87 Blood Pressure [Left] O2 Sat by Pulse Oximetry - Reevaluation(s) Reevaluation #1: 06/26/22 21:41 Differential diagnosis, including but not limited to: Noncompliance, COPD, A. fib with RVR, electrolyte derangement, pulmonary hypertension, obstructive sleep apnea Assessment and plan: 56-year-old gentleman presenting with A. fib and RVR. He is not hypoxic at this time. Chest x-ray clear. Laboratory studies nonactionable. I have personally treated this patient in the past, and have administered diltiazem to this patient, with appropriate rate control. Patient given dose of 15 mg diltiazem today, and then developed left upper extremity urticaria. He will be treated presumptively for allergic reaction. Patient not interested in receiving any more diltiazem. Contacted cardiology on-call, Dr. Kenneth Uribe Discussed the patient's history, physical, EKG, laboratory studies and clinical impression. Amiodarone not recommended, because we are not attempting rhythm control, as this patient is chronically in A. fib. He recommends metoprolol, 5 mg, every 6-8 hours, in addition to metoprolol, 50 mg, orally, every 8 hours. He indicates that the cardiology group will be able to follow in consultation. Patient is agreeable to admission and hospitalization. Awaiting callback from hospital physician to arrange admission Reevaluation #2: 06/26/22 21:43 Patient taking systemic anticoagulation. He does not have lower extremity asymmetry. He is not hypoxic. Do not suspect DVT or pulmonary embolism. Troponin negative x1. Symptoms present for greater than 8 hours. Acute VT ruled out. 06/26/22 22:42 Heart rate in the 90s. Patient resting comfortably and in no acute distress. Admitted to hospital physician, Dr. Rosas ED Medical Decision Making - Lab Data Result diagrams: 06/26/22 18:03 06/26/22 18:03 Vital Signs 06/26/22 06/26/22 06/26/22 17:22 20:28 21:34 Temperature 98.5 F Pulse Rate 112 H 108 H Respiratory 18 Rate Blood Pressure 142/88 Blood Pressure 100/70 [Left] O2 Sat by Pulse 98 Oximetry Lab Results 06/26/22 06/26/22 06/26/22 Range/Units 18:03 18:03 18:03 WBC 9.3 (4.5-11.0) K/mm3 RBC 5.83 H (3.65-5.03) M/mm3 Hgb 16.6 H (11.8-15.2) gm/dl Hct 51.1 H (35.5-45.6) % MCV 88 (84-94) fl MCH 29 (28-32) pg MCHC 33 (32-34) % RDW 13.7 (13.2-15.2) % Plt Count 215 (140-440) K/mm3 Lymph % (Auto) 18.9 (13.4-35.0) % [place] % (Auto) 11.2 H (0.0-7.3) % Eos % (Auto) 1.5 (0.0-4.3) % Baso % (Auto) 1.0 (0.0-1.8) % Lymph # (Auto) 1.8 (1.2-5.4) K/mm3 [place] # (Auto) 1.0 H (0.0-0.8) K/mm3 Eos # (Auto) 0.1 (0.0-0.4) K/mm3 Baso # (Auto) 0.1 (0.0-0.1) K/mm3 Seg Neutrophils % 67.4 (40.0-70.0) % Seg Neutrophils # 6.3 (1.8-7.7) K/mm3 PT 13.1 (12.2-14.9) Sec. INR 0.88 (0.87-1.13) APTT 28.2 (24.2-36.6) Sec. Sodium 139 (137-145) mmol/L Potassium 4.9 (3.6-5.0) mmol/L Chloride 102.0 (98-107) mmol/L Carbon Dioxide 24 (22-30) mmol/L Anion Gap 18 mmol/L BUN 24 H (9-20) mg/dL Creatinine 1.3 (0.8-1.3) mg/dL Estimated GFR 57 ml/min BUN/Creatinine Ratio 18 % Glucose 179 H (75-100) mg/dL Calcium 9.6 (8.4-10.2) mg/dL Magnesium 1.70 (1.7-2.3) mg/dL Total Bilirubin 1.20 (0.1-1.2) mg/dL AST 29 (5-40) units/L ALT 38 (7-56) units/L Alkaline Phosphatase 70 (35-129) units/L Total Creatine Kinase 32 L (55-170) units/L Troponin T < 0.010 (0.00-0.029) ng/mL NT-Pro-B Natriuret Pep 353.0 (0-900) pg/mL Total Protein 7.1 (6.3-8.2) g/dL Albumin 4.3 (3.9-5) g/dL Albumin/Globulin Ratio 1.5 % TSH (0.270-4.200) mlU/mL 06/26/22 Range/Units 18:03 WBC (4.5-11.0) K/mm3 RBC (3.65-5.03) M/mm3 Hgb (11.8-15.2) gm/dl Hct (35.5-45.6) % MCV (84-94) fl MCH (28-32) pg MCHC (32-34) % RDW (13.2-15.2) % Plt Count (140-440) K/mm3 Lymph % (Auto) (13.4-35.0) % [place] % (Auto) (0.0-7.3) % Eos % (Auto) (0.0-4.3) % Baso % (Auto) (0.0-1.8) % Lymph # (Auto) (1.2-5.4) K/mm3 Spencer # (Auto) (0.0-0.8) K/mm3 Eos # (Auto) (0.0-0.4) K/mm3 Baso # (Auto) (0.0-0.1) K/mm3 Seg Neutrophils % (40.0-70.0) % Seg Neutrophils # (1.8-7.7) K/mm3 PT (12.2-14.9) Sec. INR (0.87-1.13) APTT (24.2-36.6) Sec. Sodium (137-145) mmol/L Potassium (3.6-5.0) mmol/L Chloride (98-107) mmol/L Carbon Dioxide (22-30) mmol/L Anion Gap mmol/L BUN (9-20) mg/dL Creatinine (0.8-1.3) mg/dL Estimated GFR ml/min BUN/Creatinine Ratio % Glucose (75-100) mg/dL Calcium (8.4-10.2) mg/dL Magnesium (1.7-2.3) mg/dL Total Bilirubin (0.1-1.2) mg/dL AST (5-40) units/L ALT (7-56) units/L Alkaline Phosphatase (35-129) units/L Total Creatine Kinase (55-170) units/L Troponin T (0.00-0.029) ng/mL NT-Pro-B Natriuret Pep (0-900) pg/mL Total Protein (6.3-8.2) g/dL Albumin (3.9-5) g/dL Albumin/Globulin Ratio % TSH 1.650 (0.270-4.200) mlU/mL - EKG Data -: EKG Interpreted by Tn Rate: tachycardia - EKG Data 06/26/22 21:39 The EKG is interpreted at 20: 14 A. fib, rate 120 bpm. Left axis deviation. QTc 4 6 5 ms. There is poor R wave progression. There is motion artifact. There are PVCs. This is an abnormal EKG. This is - Radiology Data Radiology results: pending, report reviewed, image reviewed CHEST 2 VIEWS INDICATION / CLINICAL INFORMATION: Dyspnea. COMPARISON: 05/28/2022 FINDINGS: SUPPORT DEVICES: None. HEART / MEDIASTINUM: No significant abnormality. LUNGS / PLEURA: No significant pulmonary or pleural abnormality. No pneumothorax. ADDITIONAL FINDINGS: No significant additional findings. IMPRESSION: 1. No acute findings. Signer Name: Kendall Martinez MD Signed: 06/26/2022 4:49 PM Workstation Name: [id number] Critical Care Time: Yes Critical care time in (mins) excluding proc time.: 35 Critical care attestation.: If time is entered above; I have spent that time in minutes in the direct care of this critically ill patient, excluding procedure time. ED Disposition Clinical Impression: Atrial fibrillation with rapid ventricular response, Body mass index exceeds 40 Disposition: 09 ADMITTED INPATIENT Is pt being admited?: Yes Does the pt Need Aspirin: No Condition: Good Referrals: PRIMARY CARE, [Primary Care Provider] - 3-5 Days
[2022-06-26] MEDS ORDERED: AMIODARONE 900 MG in DEXTROSE 5% IN WATER 482 ML IV SCH (22:00)
[2022-06-26] MEDS ORDERED: METOCLOPRAMIDE 10 MG/2 ML INJ IV ONE (22:15)
[2022-06-26] MEDS ORDERED: ONDANSETRON 4 MG/2 ML INJ IV PRN (22:42)
[2022-06-26] MEDS ORDERED: ACETAMINOPHEN 325 MG TAB PO PRN (22:42)
[2022-06-27] MEDS ORDERED: ACETAMINOPHEN 325 MG TAB PO PRN (04:02)
[2022-06-27] MEDS ORDERED: DEXTROSE 50% IN WATER (25GM) 50 ML SYRINGE IV PRN (04:02)
[2022-06-27] MEDS ORDERED: MORPHINE 4 MG/1 ML INJ IV PRN (04:02)
[2022-06-27] MEDS ORDERED: traMADol 50 MG TAB PO PRN (04:02)
[2022-06-27] MEDS ORDERED: NITROGLYCERIN 0.4 MG TAB SUBL SL PRN (04:02)
--- NOTE | 2022-06-27 04:13 | History and Physical Report ---
History of Present Illness Date of examination: 06/27/22 Date of admission: 06/26/22 22:42 Chief complaint: Palpitation A. fib with RVR History of present illness: 56-year-old gentleman, who is morbidly obese, with a history of A. fib, compliant with Eliquis, COPD, not on home oxygen. He presents to the department today with a complaint of chest tightness, and rapid heartbeat. He reports compliance with his medications. Currently denies headache, neck pain, a bdominal pain, vomiting, diaphoresis, hematemesis, bright red blood per rectum, and urinary symptoms. He is mildly anxious. In the emergency room patient is found to have A. fib with RVR. EKG showed A. fib, rate 120 bpm. Left axis deviation. QTc 4 6 5 ms. There is poor R wave progression. There is motion artifact. There are PVCs. Subsequently Case discussed with on-call batterboard setter ,so going to admit the patient. Cardiology recommends metoprolol, 5 mg, every 6-8 hours, in addition to metoprolol, 50 mg, orally, every 8 hours. They will see the patient in consultation Past History Past Medical History: atrial fib, COPD, diabetes, heart failure, hypertension Past Surgical History: appendectomy, tonsillectomy Social history: other (Former smoker) Family history: hypertension Medications and Allergies Allergies Allergy/AdvReac Type Severity Reaction Status Date / Time No Known Allergies Allergy Verified 06/09/22 07:09 Home Medications Medication Instructions Recorded Confirmed Last Taken Type Albuterol Mdi (or & Nicu Only) 2 puff IH QID PRN 30 Days 12/10/18 06/27/2206/25 09:00 Rx [ProAir HFA Inhaler] inhalation Budesoni/Formotero 160-4.5(Nf) 1 puff IH BID 30 Days inha 12/10/18 06/27/22 06/25/22 09:00 Rx [Symbicort 160-4.5 (Nf)] amLODIPine 10 mg PO QDAY #30 tablet 12/10/18 06/27/22 06/26/22 09:00 Rx hydrALAZINE [Apresoline TAB] 50 mg PO Q8HR #90 tablet 12/10/18 06/27/22 06/26/22 09:00 Rx Amiodarone [Cordarone 200 MG TAB] 200 mg PO BID #60 tablet 04/22/22 06/27/22 06/25/22 10:00 Rx Apixaban [Eliquis] 5 mg PO BID #30 tab 04/22/22 06/27/22 06/25/22 10:00 Rx Active Meds: Active Medications Acetaminophen (Acetaminophen 325 Mg Tab) 650 mg PO Q4H PRN PRN Reason: Pain MILD(1-3)/Fever >100.5/MILLER Ondansetron HCl (Ondansetron 4 Mg/2 Ml Inj) 4 mg IV Q8H PRN PRN Reason: Nausea And Vomiting Sodium Chloride (Sodium Chloride 0.9% 10 Ml Flush Syringe) 10 ml IV BID ASHVIN Sodium Chloride (Sodium Chloride 0.9% 10 Ml Flush Syringe) 10 ml IV PRN PRN PRN Reason: LINE FLUSH Review of Systems All systems: negative Cardiovascular: chest pain, palpitations Exam - Constitutional Vitals: Temp Pulse Resp BP Pulse Ox 98.5 F 98 H 17 120/65 98 06/26/22 20:28 06/27/22 03:05 06/27/22 03:05 06/27/22 02:00 06/27/22 03:05 General appearance: Present: no acute distress, well-nourished - EENT Eyes: Present: PERRL ENT: hearing intact, clear oral mucosa - Neck Neck: Present: supple, normal ROM - Respiratory Respiratory effort: normal Respiratory: bilateral: CTA - Cardiovascular Heart Sounds: Present: S1 & S2. Absent: rub, click - Extremities Extremities: pulses symmetrical, No edema Peripheral Pulses: within normal limits - Abdominal General gastrointestinal: Present: soft, non-tender, non-distended, normal bowel sounds Male genitourinary: Present: normal - Integumentary Integumentary: Present: clear, warm, dry - Musculoskeletal Musculoskeletal: gait normal, strength equal bilaterally - Psychiatric Psychiatric: appropriate mood/affect, intact judgment & insight - Neurologic Neurologic: CNII-XII intact, moves all extremities HEART Score - HEART Score Troponin: Troponin T < 0.010 ng/mL (0.00-0.029) 06/26/22 18:03 Results - Labs CBC & Chem 7: 06/26/22 18:03 06/26/22 18:03 Labs: Laboratory Last Values WBC 9.3 K/mm3 (4.5-11.0) 06/26/22 18:03 RBC 5.83 M/mm3 (3.65-5.03) H 06/26/22 18:03 Hgb 16.6 gm/dl (11.8-15.2) H 06/26/22 18:03 Hct 51.1 % (35.5-45.6) H 06/26/22 18:03 MCV 88 fl (84-94) 06/26/22 18:03 MCH 29 pg (28-32) 06/26/22 18:03 MCHC 33 % (32-34) 06/26/22 18:03 RDW 13.7 % (13.2-15.2) 06/26/22 18:03 Plt Count 215 K/mm3 (140-440) 06/26/22 18:03 Lymph % (Auto) 18.9 % (13.4-35.0) 06/26/22 18:03 [place] % (Auto) 11.2 % (0.0-7.3) H 06/26/22 18:03 Eos % (Auto) 1.5 % (0.0-4.3) 06/26/22 18:03 Baso % (Auto) 1.0 % (0.0-1.8) 06/26/22 18:03 Lymph # (Auto) 1.8 K/mm3 (1.2-5.4) 06/26/22 18:03 [place] # (Auto) 1.0 K/mm3 (0.0-0.8) H 06/26/22 18:03 Eos # (Auto) 0.1 K/mm3 (0.0-0.4) 06/26/22 18:03 Baso # (Auto) 0.1 K/mm3 (0.0-0.1) 06/26/22 18:03 Seg Neutrophils % 67.4 % (40.0-70.0) 06/26/22 18:03 Seg Neutrophils # 6.3 K/mm3 (1.8-7.7) 06/26/22 18:03 PT 13.1 Sec. (12.2-14.9) 06/26/22 18:03 INR 0.88 (0.87-1.13) 06/26/22 18:03 APTT 28.2 Sec. (24.2-36.6) 06/26/22 18:03 Sodium 139 mmol/L (137-145) 06/26/22 18:03 Potassium 4.9 mmol/L (3.6-5.0) 06/26/22 18:03 Chloride 102.0 mmol/L (98-107) 06/26/22 18:03 Carbon Dioxide 24 mmol/L (22-30) 06/26/22 18:03 Anion Gap 18 mmol/L 06/26/22 18:03 BUN 24 mg/dL (9-20) H 06/26/22 18:03 Creatinine 1.3 mg/dL (0.8-1.3) 06/26/22 18:03 Estimated GFR 57 ml/min 06/26/22 18:03 BUN/Creatinine Ratio 18 % 06/26/22 18:03 Glucose 179 mg/dL (75-100) H 06/26/22 18:03 POC Glucose 244 mg/dL (70-105) H 06/27/22 02:28 Calcium 9.6 mg/dL (8.4-10.2) 06/26/22 18:03 Magnesium 1.70 mg/dL (1.7-2.3) 06/26/22 18:03 Total Bilirubin 1.20 mg/dL (0.1-1.2) 06/26/22 18:03 AST 29 units/L (5-40) 06/26/22 18:03 ALT 38 units/L (7-56) 06/26/22 18:03 Alkaline Phosphatase 70 units/L (35-129) 06/26/22 18:03 Total Creatine Kinase 32 units/L (55-170) L 06/26/22 18:03 Troponin T < 0.010 ng/mL (0.00-0.029) 06/26/22 18:03 NT-Pro-B Natriuret Pep 353.0 pg/mL (0-900) 06/26/22 18:03 Total Protein 7.1 g/dL (6.3-8.2) 06/26/22 18:03 Albumin 4.3 g/dL (3.9-5) 06/26/22 18:03 Albumin/Globulin Ratio 1.5 % 06/26/22 18:03 TSH 1.650 mlU/mL (0.270-4.200) 06/26/22 18:03 - Imaging and Cardiology Chest x-ray: report reviewed Harmon/IV: Voiding Method Toilet Assessment and Plan VTE prophylaxis?: Chemical Plan of care discussed with patient/family: Yes - Patient Problems (1) Atrial fibrillation with rapid ventricular response Current Visit: Yes Status: Acute Plan to address problem: Admit the patient to the medical telemetry. Aspirin 81 mg p.o. daily. Lipitor 40 mg p.o. daily. Metoprolol 50 mg p.o. every 8 hours. Eliquis 5 mg p.o. twice daily. Echocardiogram. Cardiology evaluation (2) Body mass index exceeds 40 Current Visit: Yes Status: Acute Plan to address problem: We counseled the patient regarding weight reduction. Outpatient follow-up with bariatric surgery (3) COPD exacerbation Current Visit: No Status: Acute Plan to address problem: Oxygen by nasal cannula 3 L/min. DuoNeb via nebulizer every 4 hours. Albuterol via nebulizer every 4 hours as needed (4) Diabetes mellitus Current Visit: No Status: Acute Plan to address problem: Accu-Chek every 6 hours with Humalog moderate dose coverage as. Diabetic education. Continue home medication (5) HTN (hypertension) Current Visit: No Status: Chronic Qualifiers: Hypertension type: primary hypertension Qualified Code(s): I10 - Essential (primary) hypertension Plan to address problem: Metoprolol 50 mg p.o. every 8 hours. We continue the home medication. Cardiology evaluation (6) DVT prophylaxis Current Visit: No Status: Acute Plan to address problem: Eliquis 5 mg p.o. twice daily for dvt prophylaxis. Pepcid 20 mg p.o. twice daily for GI prophylaxis. Patient is a full code
[2022-06-27] MEDS ORDERED: METOPROLOL TARTRATE 50 MG TAB PO SCH ×2 (05:00→22:00)
[2022-06-27 06:48] LABS: Hematocrit 49.3 % (35.5-45.6); Hemoglobin 16.5 gm/dl (11.8-15.2); Mean Corpuscular HGB Conc 33 % (32-34); Mean Corpuscular Volume 88 fl (84-94); Platelet Count 195 K/mm3 (140-440); Red Blood Count 5.62 M/mm3 (3.65-5.03); Red Cell Distribution Width 13.3 % (13.2-15.2)
[2022-06-27 07:01] LABS: Calcium 9.5 mg/dL (8.4-10.2)
[2022-06-27] MEDS: hydrALAZINE 25 MG TAB PO SCH ×2 (08:07→14:51)
[2022-06-27] MEDS: INSULIN LISPRO 100 UNIT/ML SUB-Q SCH ×4 (08:12→22:50)
[2022-06-27] MEDS ORDERED: METOPROLOL TARTRATE 25 MG TAB PO SCH (10:00)
[2022-06-27] MEDS ORDERED: amLODIPine 10 MG TAB PO SCH (10:00)
[2022-06-27] MEDS ORDERED: NON-FORMULARY EACH (Budesoni/Formotero 160-4.5(Nf) 10.2 GM Inha) IH SCH (10:00)
[2022-06-27] MEDS ORDERED: ASPIRIN 81 MG TAB CHEW PO SCH (10:00)
[2022-06-27] MEDS ORDERED: SODIUM POLYSTYRENE 15 GM/60 ML ORAL LIQD PO NR (10:00)
[2022-06-27] MEDS: AMIODARONE 200 MG TAB PO SCH ×2 (10:04→22:49)
[2022-06-27] MEDS: BUDESONIDE 0.5 MG/2 ML NEBU IH SCH ×2 (10:08→21:43)
[2022-06-27] MEDS: FAMOTIDINE 20 MG TAB PO SCH ×2 (10:11→22:49)
[2022-06-27] MEDS: ARFORMOTEROL 15 MCG/2 ML NEBU IH SCH ×2 (10:14→21:44)
--- NOTE | 2022-06-27 10:54 | Consultation ---
History of Present Illness Consult date: 06/27/22 Consult reason: arrhythmia, chest pain History of present illness: 56-year-old male with hypertension diabetes hyperlipidemia morbid obesity COPD atrial fibrillation on Eliquis came to the emergency room with episodes of chest pain/tightness for the past 2 to 3 days. He also noticed some rapid heartbeat/palpitations. He denies any shortness of breath on exertion orthopnea PND nausea vomiting or any other symptoms. In the emergency room he was found to have atrial fibrillation with RVR his rates have improved since then. Today morning he feels well no chest pain or shortness of breath or palpitations. He was kept n.p.o. after midnight but the patient already brought some food from the cafeteria ate by himself. Past History Past Medical History: atrial fib, COPD, diabetes, heart failure, hypertension Past Surgical History: appendectomy, tonsillectomy Social history: other (Former smoker) Family history: hypertension Medications and Allergies Allergies Allergy/AdvReac Type Severity Reaction Status Date / Time No Known Allergies Allergy Verified 06/09/22 07:09 Home Medications Medication Instructions Recorded Confirmed Last Taken Type Albuterol Mdi (or & Nicu Only) 2 puff IH QID PRN 30 Days 12/10/18 06/27/22 06/25/22 09:00 Rx [ProAir HFA Inhaler] inhalation Budesoni/Formotero 160-4.5(Nf) 1 puff IH BID 30 Days inha 12/10/18 06/27/22 06/25/22 09:00 Rx [Symbicort 160-4.5 (Nf)] amLODIPine 10 mg PO QDAY #30 tablet 12/10/18 06/27/22 06/26/22 09:00 Rx hydrALAZINE [Apresoline TAB] 50 mg PO Q8HR #90 tablet 12/10/18 06/27/22 06/26/22 09:00 Rx Amiodarone [Cordarone 200 MG TAB] 200 mg PO BID #60 tablet 04/22/22 06/27/22 06/25/22 10:00 Rx Apixaban [Eliquis] 5 mg PO BID #30 tab 04/22/22 06/27/22 06/25/22 10:00 Rx Active Meds: Active Medications Acetaminophen (Acetaminophen 325 Mg Tab) 650 mg PO Q6H PRN PRN Reason: Pain, Mild (1-3) Amiodarone HCl (Amiodarone 200 Mg Tab) 200 mg PO BID [facility] Last Admin: 06/27/22 10:04 Dose: 200 mg Amlodipine Besylate (Amlodipine 10 Mg Tab) 10 mg PO QDAY [facility] Last Admin: 06/27/22 09:58 Dose: Not Given Arformoterol Tartrate (Arformoterol 15 Mcg/2 Ml Nebu) 15 mcg IH Q12HRT [facility] Last Admin: 06/27/22 10:14 Dose: 15 mcg Aspirin (Aspirin 81 Mg Tab Chew) 81 mg PO QDAY [facility] Last Admin: 06/27/22 10:04 Dose: 81 mg Atorvastatin Calcium (Atorvastatin 40 Mg Tab) 40 mg PO QHS [facility] Budesonide (Budesonide 0.5 Mg/2 Ml Nebu) 1 mg IH Q12HRT [facility] Last Admin: 06/27/22 10:08 Dose: 1 mg Dextrose (Dextrose 50% In Water (25gm) 50 Ml Syringe) 50 ml IV Q30MIN PRN; Protocol PRN Reason: Hypoglycemia Famotidine (Famotidine 20 Mg Tab) 20 mg PO BID [facility] Last Admin: 06/27/22 10:11 Dose: 20 mg Hydralazine HCl (Hydralazine 25 Mg Tab) 50 mg PO Q8HR [facility] Last Admin: 06/27/22 08:07 Dose: Not Given Insulin Human Lispro (Insulin Lispro 100 Unit/Ml) 0 unit SUB-Q Q6HR [facility]; Protocol Last Admin: 06/27/22 08:12 Dose: 3 unit Metoprolol Tartrate (Metoprolol Tartrate 50 Mg Tab) 50 mg PO Q8HR [facility] Last Admin: 06/27/22 08:11 Dose: 50 mg Morphine Sulfate (Morphine 4 Mg/1 Ml Inj) 2 mg IV Q5MIN PRN PRN Reason: Chest Pain unrelieved by NTG Nitroglycerin (Nitroglycerin 0.4 Mg Tab Subl) 0.4 mg SL Q5M PRN PRN Reason: Chest Pain Ondansetron HCl (Ondansetron 4 Mg/2 Ml Inj) 4 mg IV Q8H PRN PRN Reason: Nausea And Vomiting Sodium Chloride (Sodium Chloride 0.9% 10 Ml Flush Syringe) 10 ml IV BID [facility] Last Admin: 06/27/22 10:11 Dose: 10 ml Sodium Chloride (Sodium Chloride 0.9% 10 Ml Flush Syringe) 10 ml IV PRN PRN PRN Reason: LINE FLUSH Sodium Polystyrene Sulfonate (Sodium Polystyrene 15 Gm/60 Ml Oral Liqd) 30 gm PO ONCE NR Stop: 06/27/22 13:00 Last Admin: 06/27/22 10:04 Dose: 30 gm Tramadol HCl (Tramadol 50 Mg Tab) 50 mg PO Q6H PRN PRN Reason: Pain, Moderate (4-6) Review of Systems Constitutional: no weight gain, no fever, no chills Ears, nose, mouth and throat: no ear pain Cardiovascular: chest pain, rapid/irregular heart beat, no orthopnea, no palpitations, no dyspnea on exertion Respiratory: no cough, no excessive sputum, no hemoptysis Gastrointestinal: no nausea, no vomiting Musculoskeletal: no neck pain Integumentary: no rash Neurological: no head injury Psychiatric: no confusion Endocrine: no palpatations Hematologic/Lymphatic: no easy bruising Physical Examination Vital Signs Pulse Resp BP Pulse Ox 112 H 18 100/70 98 06/26/22 17:22 06/26/22 17:22 06/26/22 17:22 06/26/22 17:22 General appearance: no acute distress HEENT: Positive: PERRL, Normocephaly Neck: Positive: neck supple. Negative: JVD/HJR Cardiac: Positive: Irregularly Regular, S1/S2 Lungs: Positive: Decreased Breath Sounds, Ventilated Respirations Neuro: Positive: Grossly Intact Abdomen: Positive: Soft Skin: Negative: Rash Extremities: Absent: edema Results 06/27/22 06:01 06/27/22 06:01 Cardiac Enzymes 06/26/22 Range/Units 18:03 AST 29 (5-40) units/L Coagulation 06/26/22 Range/Units 18:03 PT 13.1 (12.2-14.9) Sec. INR 0.88 (0.87-1.13) APTT 28.2 (24.2-36.6) Sec. CBC 06/26/22 06/27/22 Range/Units 18:03 06:01 WBC 9.3 11.3 H (4.5-11.0) K/mm3 RBC 5.83 H 5.62 H (3.65-5.03) M/mm3 Hgb 16.6 H 16.5 H (11.8-15.2) gm/dl Hct 51.1 H 49.3 H (35.5-45.6) % Plt Count 215 195 (140-440) K/mm3 Lymph # (Auto) 1.8 (1.2-5.4) K/mm3 [place] # (Auto) 1.0 H (0.0-0.8) K/mm3 Eos # (Auto) 0.1 (0.0-0.4) K/mm3 Baso # (Auto) 0.1 (0.0-0.1) K/mm3 Comprehensive Metabolic Panel 06/26/22 06/27/22 Range/Units 18:03 06:01 Sodium 139 131 L D (137-145) mmol/L Potassium 4.9 5.1 H (3.6-5.0) mmol/L Chloride 102.0 97.3 L (98-107) mmol/L Carbon Dioxide 24 21 L (22-30) mmol/L BUN 24 H 27 H (9-20) mg/dL Creatinine 1.3 1.3 (0.8-1.3) mg/dL Glucose 179 H 340 H (75-100) mg/dL Calcium 9.6 9.5 (8.4-10.2) mg/dL AST 29 (5-40) units/L ALT 38 (7-56) units/L Alkaline Phosphatase 70 (35-129) units/L Total Protein 7.1 (6.3-8.2) g/dL Albumin 4.3 (3.9-5) g/dL EKG interpretations - Telemetry EKG Rhythm: Atrial Fibrillation Assessment and Plan - Patient Problems (1) Chest pain Current Visit: Yes Status: Acute Plan to address problem: Patient chest pain likely from his A. fib with RVR he never had a stress test done in the past. Therefore advised but says he was claustrophobic never got it done he was given to try. Since he ate today despite the n.p.o. we cannot get it done today will order for tomorrow if the patient is being discharged we can get it done as an outpatient. (2) Atrial fibrillation with rapid ventricular response Current Visit: Yes Status: Acute Plan to address problem: Patient rates are controlled today. His remain shows rate 90-100. Continue amiodarone and apixaban. We will uptitrate to metoprolol 100 twice daily. Echo in May showed EF of 50 to 55%, no repeat needed
[2022-06-27 11:15] LABS: Basophils % (Manual) 0 % (0.0-1.8); Eosinophils % (Manual) 0 % (0.0-4.3); RBC Morphology Normal; Total Cells Counted 100
[2022-06-27 11:16] LABS: Large Platelets Few; Platelet Estimate Consistent w Auto
--- NOTE | 2022-06-27 12:52 | Progress Note ---
Assessment and Plan Assessment and plan: 56-year-old gentleman, who is morbidly obese, with a history of A. fib, compliant with Eliquis, COPD, not on home oxygen. He presents to the department today with a complaint of chest tightness, and rapid heartbeat. He reports compliance with his medications. Currently denies headache, neck pain, abdo rosa pain, vomiting, diaphoresis, hematemesis, bright red blood per rectum, and urinary symptoms. He is mildly anxious. In the emergency room patient is found to have A. fib with RVR. EKG showed A. fib, rate 120 bpm. Left axis deviation. QTc 4 6 5 ms. There is poor R wave progression. There is motion artifact. There are PVCs. Subsequently Case discussed with on-call criminology teacher ,so going to admit the patient. Cardiology recommends metoprolol, 5 mg, every 6-8 hours, in addition to metoprolol, 50 mg, orally, every 8 hours. They will see the patient in consultation Past History Past Medical History: atrial fib, COPD, diabetes, heart failure, hypertension Past Surgical History: appendectomy, tonsillectomy Social history: other (Former smoker) Family history: hypertension 06/27: Patient seen and examined this morning unfortunately despite being n.p.o. he ordered food and ate. He wants to stay and have the stress test done. His blood sugar was also significantly elevated at 340. Still had elevated potassium of 5.1. Will give Kayexalate we will monitor blood sugar. I did have counseling with the patient for 15 minutes about his weight and importance of losing weight also compliance with following up with doctors he verbalized understanding he stated a transportation issue is part of the main problem and I did discuss with case management to assist the patient with this. Plan is for stress test in a.m. and if no ischemic events noted can be discharged as long as blood sugars better controlled. Outpatient sleep study a lso recommended (1) Atrial fibrillation with rapid ventricular response Current Visit: Yes Status: Acute Plan to address problem: Admit the patient to the medical telemetry. Aspirin 81 mg p.o. daily. Lipitor 40 mg p.o. daily. Metoprolol 50 mg p.o. every 8 hours. Eliquis 5 mg p.o. twice daily. Echocardiogram. Cardiology evaluation (2) Body mass index exceeds 40 Current Visit: Yes Status: Acute Plan to address problem: We counseled the patient regarding weight reduction. Outpatient follow-up with bariatric surgery (3) COPD exacerbation Current Visit: No Status: Acute Plan to address problem: Oxygen by nasal cannula 3 L/min. DuoNeb via nebulizer every 4 hours. Albuterol via nebulizer every 4 hours as needed (4) Diabetes mellitus Current Visit: No Status: Acute Plan to address problem: Accu-Chek every 6 hours with Humalog moderate dose coverage as. Diabetic education. Continue home medication (5) HTN (hypertension) Current Visit: No Status: Chronic Qualifiers: Hypertension type: primary hypertension Qualified Code(s): I10 - Essential (primary) hypertension Plan to address problem: Metoprolol 50 mg p.o. every 8 hours. We continue the home medication. Cardiology evaluation (6) hyperkalemia (7)DVT prophylaxis Current Visit: No Status: Acute Plan to address problem: Eliquis 5 mg p.o. twice daily for dvt prophylaxis. Pepcid 20 mg p.o. twice daily for GI prophylaxis. Patient is a full code History Interval history: Patients seen and examined, No new complaints. states that his lack of follow is due to poor transportation issues., Otherwise he denies any chest pain at this time. Hospitalist Physical - Physical exam Narrative exam: VITAL SIGNS: Reviewed. GENERAL: The patient appears normally developed, morbidly obese vital signs as documented. HEAD: No signs of head trauma. EYES: Pupils are equal. Extraocular motions intact. EARS: Hearing grossly intact. MOUTH: Oropharynx is normal. NECK: No adenopathy, no JVD. CHEST: Chest with clear breath sounds bilaterally. No wheezes, rales, or rhonchi. CARDIAC: Regular rate and rhythm. S1 and S2, without murmurs, gallops, or rubs. VASCULAR: No Edema. Peripheral pulses normal and equal in all extremities. ABDOMEN: Soft, non tender and non distended. No rebound or guarding, and no masses palpated. Bowel Sounds normal. MUSCULOSKELETAL: Good range of motion of all major joints. Extremities without clubbing, cyanosis or edema. NEUROLOGIC EXAM: Alert and oriented x 3 No focal sensory or strength deficits. Speech normal. Follows commands. PSYCHIATRIC: Mood normal. SKIN: detail exam as documented in skin assessment - Constitutional Vitals: Temp Pulse Resp BP Pulse Ox 97.5 F L 91 H 18 115/66 96 06/27/22 09:53 06/27/22 10:22 06/27/22 10:22 06/27/22 09:53 06/27/22 09:53 General appearance: Present: no acute distress HEART Score - HEART Score Troponin: Troponin T < 0.010 ng/mL (0.00-0.029) 06/27/22 09:13 Results - Labs CBC & Chem 7: 06/27/22 06:01 06/27/22 06:01 Labs: Laboratory Last Values WBC 11.3 K/mm3 (4.5-11.0) H 06/27/22 06:01 RBC 5.62 M/mm3 (3.65-5.03) H 06/27/22 06:01 Hgb 16.5 gm/dl (11.8-15.2) H 06/27/22 06:01 Hct 49.3 % (35.5-45.6) H 06/27/22 06:01 MCV 88 fl (84-94) 06/27/22 06:01 MCH 29 pg (28-32) 06/27/22 06:01 MCHC 33 % (32-34) 06/27/22 06:01 RDW 13.3 % (13.2-15.2) 06/27/22 06:01 Plt Count 195 K/mm3 (140-440) 06/27/22 06:01 Lymph % (Auto) 18.9 % (13.4-35.0) 06/26/22 18:03 [place] % (Auto) 11.2 % (0.0-7.3) H 06/26/22 18:03 Eos % (Auto) 1.5 % (0.0-4.3) 06/26/22 18:03 Baso % (Auto) 1.0 % (0.0-1.8) 06/26/22 18:03 Lymph # (Auto) 1.8 K/mm3 (1.2-5.4) 06/26/22 18:03 [place] # (Auto) 1.0 K/mm3 (0.0-0.8) H 06/26/22 18:03 Eos # (Auto) 0.1 K/mm3 (0.0-0.4) 06/26/22 18:03 Baso # (Auto) 0.1 K/mm3 (0.0-0.1) 06/26/22 18:03 Add Manual Diff Complete 06/27/22 06:01 Total Counted 100 06/27/22 06:01 Seg Neutrophils % Communications Marketing Intern 06/27/22 06:01 Seg Neuts % (Manual) 86.0 % (40.0-70.0) H 06/27/22 06:01 Band Neutrophils % 0 % 06/27/22 06:01 Lymphocytes % (Manual) 11.0 % (13.4-35.0) L 06/27/22 06:01 Reactive Lymphs % (Man) 0 % 06/27/22 06:01 Monocytes % (Manual) 3.0 % (0.0-7.3) 06/27/22 06:01 Eosinophils % (Manual) 0 % (0.0-4.3) 06/27/22 06:01 Basophils % (Manual) 0 % (0.0-1.8) 06/27/22 06:01 Metamyelocytes % 0 % 06/27/22 06:01 Myelocytes % 0 % 06/27/22 06:01 Promyelocytes % 0 % 06/27/22 06:01 Blast Cells % 0 % 06/27/22 06:01 Nucleated RBC % Not Reportable 06/27/22 06:01 Seg Neutrophils # 6.3 K/mm3 (1.8-7.7) 06/26/22 18:03 Seg Neutrophils # Man 9.7 K/mm3 (1.8-7.7) H 06/27/22 06:01 Band Neutrophils # 0.0 K/mm3 06/27/22 06:01 Lymphocytes # (Manual) 1.2 K/mm3 (1.2-5.4) 06/27/22 06:01 Abs React Lymphs (Man) 0.0 K/mm3 06/27/22 06:01 Monocytes # (Manual) 0.3 K/mm3 (0.0-0.8) 06/27/22 06:01 Eosinophils # (Manual) 0.0 K/mm3 (0.0-0.4) 06/27/22 06:01 Basophils # (Manual) 0.0 K/mm3 (0.0-0.1) 06/27/22 06:01 Metamyelocytes # 0.0 K/mm3 06/27/22 06:01 Myelocytes # 0.0 K/mm3 06/27/22 06:01 Promyelocytes # 0.0 K/mm3 06/27/22 06:01 Blast Cells # 0.0 K/mm3 06/27/22 06:01 WBC Morphology Not Reportable 06/27/22 06:01 Hypersegmented Neuts Not Reportable 06/27/22 06:01 Hyposegmented Neuts Not Reportable 06/27/22 06:01 Hypogranular Neuts Not Reportable 06/27/22 06:01 Smudge Cells Not Reportable 06/27/22 06:01 Toxic Granulation Not Reportable 06/27/22 06:01 Toxic Vacuolation Not Reportable 06/27/22 06:01 Dohle Bodies Not Reportable 06/27/22 06:01 Pelger-Huet Anomaly Not Reportable 06/27/22 06:01 Janet Rods Not Reportable 06/27/22 06:01 Platelet Estimate Consistent w auto 06/27/22 06:01 Clumped Platelets Not Reportable 06/27/22 06:01 Plt Clumps, EDTA Not Reportable 06/27/22 06:01 Large Platelets Few 06/27/22 06:01 Giant Platelets Not Reportable 06/27/22 06:01 Platelet Satelliting Not Reportable 06/27/22 06:01 Plt Morphology Comment Not Reportable 06/27/22 06:01 RBC Morphology Normal 06/27/22 06:01 Dimorphic RBCs Not Reportable 06/27/22 06:01 Polychromasia Not Reportable 06/27/22 06:01 Hypochromasia Not Reportable 06/27/22 06:01 Poikilocytosis Not Reportable 06/27/22 06:01 Anisocytosis Not Reportable 06/27/22 06:01 Microcytosis Not Reportable 06/27/22 06:01 Macrocytosis Not Reportable 06/27/22 06:01 Spherocytes Not Reportable 06/27/22 06:01 Pappenheimer Bodies Not Reportable 06/27/22 06:01 Sickle Cells Not Reportable 06/27/22 06:01 Target Cells Not Reportable 06/27/22 06:01 Tear Drop Cells Not Reportable 06/27/22 06:01 Ovalocytes Not Reportable 06/27/22 06:01 Helmet Cells Not Reportable 06/27/22 06:01 Sigala-Minneola Bodies Not Reportable 06/27/22 06:01 [place] Rings Not Reportable 06/27/22 06:01 Tesha Cells Not Reportable 06/27/22 06:01 Bite Cells Not Reportable 06/27/22 06:01 Crenated Cell Not Reportable 06/27/22 06:01 Elliptocytes Not Reportable 06/27/22 06:01 Acanthocytes (Spur) Not Reportable 06/27/22 06:01 Rouleaux Not Reportable 06/27/22 06:01 Hemoglobin C Crystals Not Reportable 06/27/22 06:01 Schistocytes Not Reportable 06/27/22 06:01 Malaria parasites Not Reportable 06/27/22 06:01 Lorenzo Bodies Not Reportable 06/27/22 06:01 Hem Pathologist Commnt No 06/27/22 06:01 PT 13.1 Sec. (12.2-14.9) 06/26/22 18:03 INR 0.88 (0.87-1.13) 06/26/22 18:03 APTT 28.2 Sec. (24.2-36.6) 06/26/22 18:03 Sodium 131 mmol/L (137-145) L D 06/27/22 06:01 Potassium 5.1 mmol/L (3.6-5.0) H 06/27/22 06:01 Chloride 97.3 mmol/L (98-107) L 06/27/22 06:01 Carbon Dioxide 21 mmol/L (22-30) L 06/27/22 06:01 Anion Gap 18 mmol/L 06/27/22 06:01 BUN 27 mg/dL (9-20) H 06/27/22 06:01 Creatinine 1.3 mg/dL (0.8-1.3) 06/27/22 06:01 Estimated GFR 57 ml/min 06/27/22 06:01 BUN/Creatinine Ratio 21 % 06/27/22 06:01 Glucose 340 mg/dL (75-100) H 06/27/22 06:01 POC Glucose 244 mg/dL (70-105) H 06/27/22 02:28 Calcium 9.5 mg/dL (8.4-10.2) 06/27/22 06:01 Magnesium 1.70 mg/dL (1.7-2.3) 06/26/22 18:03 Total Bilirubin 1.20 mg/dL (0.1-1.2) 06/26/22 18:03 AST 29 units/L (5-40) 06/26/22 18:03 ALT 38 units/L (7-56) 06/26/22 18:03 Alkaline Phosphatase 70 units/L (35-129) 06/26/22 18:03 Total Creatine Kinase 32 units/L (55-170) L 06/26/22 18:03 Troponin T < 0.010 ng/mL (0.00-0.029) 06/27/22 09:13 NT-Pro-B Natriuret Pep 353.0 pg/mL (0-900) 06/26/22 18:03 Total Protein 7.1 g/dL (6.3-8.2) 06/26/22 18:03 Albumin 4.3 g/dL (3.9-5) 06/26/22 18:03 Albumin/Globulin Ratio 1.5 % 06/26/22 18:03 TSH 1.650 mlU/mL (0.270-4.200) 06/26/22 18:03 Harmon/IV: Voiding Method Toilet Active Medications - Current Medications Current Medications: Generic Name Dose Route Start Last Admin Trade Name Freq PRN Reason Stop Dose Admin Acetaminophen 650 mg 06/27/22 04:02 Acetaminophen 325 Mg Tab PO Q6H PRN Pain, Mild (1-3) Amiodarone HCl 200 mg 06/27/22 10:00 06/27/22 10:04 Amiodarone 200 Mg Tab PO 200 mg BID ASHVIN Administration Amlodipine Besylate 10 mg 06/27/22 10:00 06/27/22 09:58 Amlodipine 10 Mg Tab PO Not Given QDAY ASHVIN Arformoterol Tartrate 15 mcg 06/27/22 08:00 06/27/22 10:14 Arformoterol 15 Mcg/2 Ml Nebu IH 15 mcg Q12HRT ASHVIN Administration Aspirin 81 mg 06/27/22 10:00 06/27/22 10:04 Aspirin 81 Mg Tab Chew PO 81 mg QDAY ASHVIN Administration Atorvastatin Calcium 40 mg 06/27/22 22:00 Atorvastatin 40 Mg Tab PO QHS ASHVNI Budesonide 1 mg 06/27/22 08:00 06/27/22 10:08 Budesonide 0.5 Mg/2 Ml Nebu IH 1 mg Q12HRT ASHVIN Administration Dextrose 50 ml 06/27/22 04:02 Dextrose 50% In Water (25gm) 50 Ml Syringe IV Q30MIN PRN Hypoglycemia Protocol Famotidine 20 mg 06/27/22 10:00 06/27/22 10:11 Famotidine 20 Mg Tab PO 20 mg BID ASHVIN Administration Hydralazine HCl 50 mg 06/27/22 06:00 06/27/22 08:07 Hydralazine 25 Mg Tab PO Not Given Q8HR ASHVIN Insulin Human Lispro 0 unit 06/27/22 06:00 06/27/22 12:36 Insulin Lispro 100 Unit/Ml SUB-Q 8 unit Q6HR ASHVIN Administration Protocol Metoprolol Tartrate 100 mg 06/27/22 22:00 Metoprolol Tartrate 50 Mg Tab PO BID ASHVIN Morphine Sulfate 2 mg 06/27/22 04:02 Morphine 4 Mg/1 Ml Inj IV Q5MIN PRN Chest Pain unrelieved by NTG Nitroglycerin 0.4 mg 06/27/22 04:02 Nitroglycerin 0.4 Mg Tab Subl SL Q5M PRN Chest Pain Ondansetron HCl 4 mg 06/26/22 22:42 Ondansetron 4 Mg/2 Ml Inj IV Q8H PRN Nausea And Vomiting Sodium Chloride 10 ml 06/27/22 10:00 06/27/22 10:11 Sodium Chloride 0.9% 10 Ml Flush Syringe IV 10 ml BID ASHVIN Administration Sodium Chloride 10 ml 06/27/22 04:02 Sodium Chloride 0.9% 10 Ml Flush Syringe IV PRN PRN LINE FLUSH Sodium Polystyrene Sulfonate 30 gm 06/27/22 10:00 06/27/22 10:04 Sodium Polystyrene 15 Gm/60 Ml Oral Liqd PO 06/27/22 13:00 30 gm ONCE NR Administration Tramadol HCl 50 mg 06/27/22 04:02 Tramadol 50 Mg Tab PO Q6H PRN Pain, Moderate (4-6)
--- NOTE | 2022-06-27 13:05 | Electrocardiograph Report ---
[facility] Test Date: 2022-06-27 Test Time: 07:35:23 Pat Name: YESIKA BACON Department: Room: A473 1 Gender: M Manager Relocation: WALKER : 1965 Requested By: DESIREE DOW Order Number: [id number] Reading MD: Chet Bradley Measurements Intervals [place] Rate: 111 P: [place]: QRS: 44 QRSD: 109 T: 106 QT: 352 QTc: 479 Interpretive Statements Rapid atrial fibrillation Anterior infarct, old Nonspecific T abnormalities, lateral leads Compared to ECG 06/26/2022 20:14:14 No significant change Electronically Signed On 06-27-2022 13:05:08 EDT by Chet Bradley
--- NOTE | 2022-06-27 13:07 | Electrocardiograph Report ---
[facility] Test Date: 2022-06-27 Test Time: 11:17:46 Pat Name: YESIKA BACON Department: Room: A473 1 Gender: M Group Program Manager: WALKER : 1965 Requested By: DESIREE DOW Order Number: [id number] Reading MD: Chet Bradley Measurements Intervals [place] Rate: 105 P: [place]: QRS: 12 QRSD: 95 T: 115 QT: 353 QTc: 467 Interpretive Statements Atrial fibrillation Anterior infarct, old Nonspecific T abnormalities, lateral leads Compared to ECG 06/27/2022 07:35:23 No significant changes Electronically Signed On 06-27-2022 13:07:26 EDT by Chet Bradley
[2022-06-27 20:37] VITALS: BP 103/51
--- NOTE | 2022-06-28 09:56 | Electrocardiograph Report ---
[facility] Test Date: 2022-06-26 Test Time: 20:14:14 Pat Name: YESIKA BACON Department: Room: A473 1 Gender: M Company Pilot: [employer] : 1965 Requested By: DARCI MICHAUD Order Number: [id number] Reading MD: Jose Mclaughlin Measurements Intervals [place] Rate: 120 P: [place]: QRS: -40 QRSD: 98 T: 86 QT: 329 QTc: 465 Interpretive Statements Atrial fibrillation Ventricular premature complex Left axis deviation Anterior infarct, old Compared to ECG 05/28/2022 15:37:29 Ventricular premature complex(es) now present Left-axis deviation now present Prolonged QT interval no longer present Myocardial infarct finding still present Electronically Signed On 06-28-2022 9:56:02 EDT by Jose Mclaughlin
[2022-06-28] MEDS ORDERED: ASPIRIN EC 325 MG TAB PO SCH (10:00)
== END 2022-06-27 23:00 | disposition home or self-care (01) ==
LOC: ED 17:04 → 4A 22:42
PROVIDERS: ADMIT Hospitalist; ATTEND Internal Medicine
DX: I48.20 Chronic atrial fibrillation, unspecified (principal); R07.89 Other chest pain; J44.1 Chronic obstructive pulmonary disease with (acute) exacerbation; I11.0 Hypertensive heart disease with heart failure; I50.9 Heart failure, unspecified; E87.5 Hyperkalemia; E66.01 Morbid (severe) obesity due to excess calories; E11.9 Type 2 diabetes mellitus without complications; Z68.36 Body mass index [BMI] 36.0-36.9, adult; Z90.49 Acquired absence of other specified parts of digestive tract; Z87.891 Personal history of nicotine dependence; Z79.899 Other long term (current) drug therapy; Z98.890 Other specified postprocedural states; Z79.82 Long term (current) use of aspirin
CPT/HCPCS: 36415; 71046; 80048; 80053; 82550; 82962; 83735; 83880; 84443; 84484; 85025; 85610; 85730; 93005; 94640; 96372; 96374; 96375; 99291; G0378; J0282; J1200; J2765; J2930; J3490; J7060; 85007; Q9967; J1815